=== PATIENT | male | born 1940 | race Caucasian/White ===

== ENCOUNTER 2019-03-26 13:13 | Outpatient (CLI) | payer MEDICARE, OTHER, SELFPAY ==
--- NOTE | 2019-03-26 13:17 | ECG_ITS ---
Measurements Intervals [place] Rate: 66 P: 54 NC: 176 QRS: 66 QRSD: 101 T: 38 QT: 376 QTc: 396 Interpretive Statements SINUS RHYTHM BORDERLINE R WAVE PROGRESSION, ANTERIOR LEADS BASELINE ARTIFACT- I, II, III, AVR, AVL, AVF ABNORMAL ECG Electronically Signed On 03-26-2019 15:44:14 IT [employer] by Dimas Gooden D.O.
[2019-03-26 13:53] LABS: Blood Urea Nitrogen 18 mg/dL (9-20); Calcium 9.2 mg/dL (8.4-10.2); Carbon Dioxide 35 mmol/L (22-30); Chloride 98 mmol/L (98-107); Estimated Glomerular Filt Rate 54; Glucose 114 mg/dL (75-110); Potassium 3.6 mmol/L (3.4-5.0); Sodium 142 mmol/L (137-145)
== END 2019-03-26 13:14 | disposition home or self-care (01) ==
LOC: ANHSURGERY 13:17
PROVIDERS: Anesthesiology; PCP Internal Medicine; Visit Provider Surgery
DX: R94.31 Abnormal electrocardiogram [ECG] [EKG] (principal); I10 Essential (primary) hypertension
CPT/HCPCS: 36415; 80048; 93005

== ENCOUNTER 2019-11-24 00:37 | Outpatient (CLI) | payer MEDICARE, OTHER, SELFPAY ==
[2019-11-24 17:41] LABS: SARS-CoV-2 RNA PCR Negative
== END 2019-11-24 00:38 | disposition home or self-care (01) ==
LOC: ANHCOVIDDT 00:38
PROVIDERS: PCP Internal Medicine; Visit Provider Surgery
DX: Z01.812 Encounter for preprocedural laboratory examination (principal); Z20.828 Contact with and (suspected) exposure to other viral communicable diseases
CPT/HCPCS: 87635; C9803; U0003

== ENCOUNTER 2019-11-24 07:56 | Outpatient (CLI) | payer MEDICARE, OTHER, SELFPAY ==
[2019-11-24 08:49] LABS: Anion Gap 4 mmol/L (8-16); Blood Urea Nitrogen 23 mg/dL (9-20); Calcium 9.6 mg/dL (8.4-10.2); Carbon Dioxide 35 mmol/L (22-30); Chloride 103 mmol/L (98-107); Estimated Glomerular Filt Rate > 60; Glucose 104 mg/dL (75-110); Potassium 4.2 mmol/L (3.4-5.0); Sodium 142 mmol/L (137-145)
== END 2019-11-24 07:57 | disposition home or self-care (01) ==
PROVIDERS: Anesthesiology; PCP Internal Medicine; Visit Provider Surgery
DX: Z79.899 Other long term (current) drug therapy (principal)
CPT/HCPCS: 36415; 80048; 87635; C9803; U0003

== ENCOUNTER 2019-11-26 02:22 | Day surgery (SDC) | payer MEDICARE, OTHER, SELFPAY ==
[2019-11-19 15:17] VITALS: BMI 23.8
[2019-11-26] VITALS (8 sets, daily range): BP systolic 141–153; BP diastolic 79–102; PULSE 70–83; RESP 14–20; TEMP 36.1–36.9; O2SAT 93–100
--- NOTE | 2019-11-26 09:15 | WPDANESEPPF ---
Anes - Initial Pre Proc Eval Procedure: Operation Date: 11/26/19 15:30 Proposed Procedures p Ventral Periumbilical Hernia Repair With Mesh - Buddy Reardon DO <Micah Mike MD - Last Filed: 11/27/19 12:49> Date/Time: 11/26/19 09:15 <Micah Mike MD - Last Filed: 11/27/19 12:49> Surgeon: Buddy Reardon DO <Micah Mike MD - Last Filed: 11/27/19 12:49> Pre Op Diagnosis: Ventral Periumbilical Hernia <Micah Mike MD - Last Filed: 11/27/19 12:49> Patient Data Age: 79 Gender: M Height: 1.83 m Weight: 79.5 kg <Micah Mike MD - Last Filed: 11/27/19 12:49> Allergies Allergy/AdvReac Type Severity Reaction Status Date / Time morphine AdvReac Severe Vomiting Verified 11/26/19 14:30 <Micah Mike MD - Last Filed: 11/27/19 12:49> Home Medications Medication Instructions Recorded Confirmed Type doxycycline hyclate 100 mg tablet 100 mg PO DAILY 03/11/19 11/26/19 History furosemide 20 mg tablet 20 mg PO QAM 03/11/19 11/26/19 History pramipexole 0.5 mg tablet 0.5 mg PO BID 03/11/19 11/26/19 History Calcium 600 + D(3) 1 cap PO DAILY 03/24/19 11/26/19 History Glucosamine Complex-MSM 1 cap PO DAILY 03/24/19 11/26/19 History ascorbic acid (vitamin C) [Vitamin 500 mg PO DAILY 03/24/19 11/26/19 History C] cholecalciferol (vitamin D3) 1 unit PO DAILY 03/24/19 11/26/19 History levothyroxine 50 mcg PO DAILY 03/24/19 11/26/19 History magnesium 400 mg PO DAILY 03/24/19 11/26/19 History niacin 500 mg PO DAILY 03/24/19 11/26/19 History potassium gluconate 595 mg PO DAILY 03/24/19 11/26/19 History irbesartan-hydrochlorothiazide 1 tablet PO DAILY 11/19/19 11/26/19 History metoprolol succinate 50 mg PO DAILY 11/19/19 11/26/19 History spironolactone 25 mg PO DAILY 11/19/19 11/26/19 History hydrocodone-acetaminophen [[place]] 1 tablet PO Q4H PRN #20 tablet 11/26/19 Rx <Micah Mike MD - Last Filed: 11/27/19 12:49> Patient hx anesthesia problems: none <Dawit Turner MD - Last Filed: 11/26/19 14:05> Family hx anesthesia problems: none <Dawit Turner MD - Last Filed: 11/26/19 14:05> [facility] Past Medical History Medical History: Medical History Hyperlipidemia Hypertension Hypothyroidism JORDAN (obstructive sleep apnea) <Micah Mike MD - Last Filed: 11/27/19 12:49> Surgical History Surgical History: Surgical History History of hip surgery right 2019 History of knee surgery bilateral 2018 History of rotator cuff surgery right 10 yrs ago <Micah Mike MD - Last Filed: 11/27/19 12:49> Family History Family History: Family History Sibling Lung cancer Father Emphysema of lung Mother Colon cancer <Micah Mike MD - Last Filed: 11/27/19 12:49> Social History Social History: Social History Smoking status: Never smoker Second hand tobacco smoke exposure: No Alcohol intake: never Substance use: never Living arrangements: with family Spiritual care concerns: No <Micah Mike MD - Last Filed: 11/27/19 12:49> Anes - Eval Final PreProcedure Day of Procedure 11/26/19 09:15 <Micah Mike MD - Last Filed: 11/27/19 12:49> Patient weight: normal <Micah Mike MD - Last Filed: 11/27/19 12:49> normal <Dawit Turner MD - Last Filed: 11/26/19 14:05> Heart: regular rate and rhythm <Micah Mike MD - Last Filed: 11/27/19 12:49> regular rate and rhythm <Dawit Turner MD - Last Filed: 11/26/19 14:05> Lungs: clear to auscultation and normal air movement <Micah Mike MD - Last Filed: 11/27/19 12:49> clear to auscultation <Dawit Turner MD - Last Filed: 11/26/19 14:05> Airway: Mallampati scale
--- NOTE | 2019-11-26 13:51 | PM.IMHP ---
H&P: HPI History of Present Illness Date/Time: 11/26/19 13:51 Chief complaint: Ventral Periumbilical Hernia Narrative: Rolly Gray is a 79 year old male who presents with a bulge near his umbilicus that is causing intermittent pain. This has gotten large over the past couple years. Review of Systems Review of Systems: All systems reviewed & are unremarkable except as noted in HPI and below Constitutional: Constitutional: Denies chills, Denies fever(s), Denies headache(s) and Denies weight loss Eyes: Eyes: Denies change in vision ENT: Denies dizziness, Denies headache(s), Denies neck mass and Denies throat swelling Cardiovascular: Cardiovascular: Denies chest pain, Denies lightheadedness and Denies dyspnea Respiratory: Respiratory: Denies cough, Denies dyspnea and Denies wheezing Gastrointestinal: Gastrointestinal: Denies abdominal pain, Denies change in bowel habits, Denies nausea and Denies vomiting Genitourinary: Genitourinary: Denies hematuria and Denies dysuria Musculoskeletal: Musculoskeletal: Reports as per HPI Integumentary/Breasts: Skin/Breast: Reports as per HPI Neurologic: Denies dizziness and Denies headache(s) Allergic/Immunologic: Allergic/Immunologic: Denies throat swelling and Denies wheezing PMFSH Past Medical History Medical History Hyperlipidemia Hypertension Hypothyroidism JORDAN (obstructive sleep apnea) Surgical History Surgical History History of hip surgery right 2019 History of knee surgery bilateral 2018 History of rotator cuff surgery right 10 yrs ago Family History Family History Sibling Lung cancer Father Emphysema of lung Mother Colon cancer Social History Social History Smoking status: Never smoker Second hand tobacco smoke exposure: No Alcohol intake: never Substance use: never Living arrangements: with family Spiritual care concerns: No Meds Home Medications and Allergies Home Medications Medication Instructions Recorded Confirmed Type doxycycline hyclate 100 mg tablet 100 mg PO DAILY 03/11/19 11/19/19 History furosemide 20 mg tablet 20 mg PO QAM 03/11/19 11/19/19 History pramipexole 0.5 mg tablet 0.5 mg PO BID 03/11/19 11/19/19 History ascorbic acid (vitamin C) [Vitamin 500 mg PO DAILY 03/24/19 11/19/19 History C] calcium carbonate-vitamin D3 1 cap PO DAILY 03/24/19 11/19/19 History [Calcium 600 + D(3)] cholecalciferol (vitamin D3) 1 unit PO DAILY 03/24/19 11/19/19 History ukrefctatiq-ckb-lvtxbqqlc-vitC 1 cap PO DAILY 03/24/19 11/19/19 History [Glucosamine Complex-MSM] levothyroxine 50 mcg PO DAILY 03/24/19 11/19/19 History magnesium 400 mg PO DAILY 03/24/19 11/19/19 History niacin 500 mg PO DAILY 03/24/19 11/19/19 History potassium gluconate 595 mg PO DAILY 03/24/19 11/19/19 History irbesartan-hydrochlorothiazide 1 tablet PO DAILY 11/19/19 11/19/19 History metoprolol succinate 50 mg PO DAILY 11/19/19 11/19/19 History spironolactone 25 mg PO DAILY 11/19/19 11/19/19 History Allergies Allergy/AdvReac Type Severity Reaction Status Date / Time morphine AdvReac Severe Vomiting Verified 11/25/19 13:49 Exam Const: General: no acute distress and alert Orientation/consciousness: patient oriented x3 HENMT: Head: normocephalic and atraumatic Ears: hearing grossly normal bilaterally General nose exam: Normal nares present Mouth: Yes Normal oral and palatal mucosa present Eyes: Periorbital: periorbital findings normal Sclera: sclerae normal EOM: EOMs intact bilaterally Neck: Neck: normal visual inspection, no lymphadenopathy and trachea midline Chest: Chest palpation & inspection: normal inspection of the chest Resp: Effort & Inspection: normal respiratory effort Auscultation: clear to auscultati
--- NOTE | 2019-11-26 13:53 | WPDHPUPDATE1 ---
History and Physical Update Update Date/Time: 11/26/19 13:53 History and Physical has been reviewed, including an updated exam of the patient. There are NO changes in the patient's condition. Risks, benefits, and alternatives have been discussed and questions answered. Patient agrees to proceed with procedure.
[2019-11-26] MEDS: LACTATED RINGERS 1,000 ML 30 ML IV CONT ×2 (14:00→15:56)
[2019-11-26] MEDS: KETOROLAC 15 MG/ML VIAL (*BKC) IV PUSH (14:23)
[2019-11-26] MEDS: ACETAMINOPHEN 500 MG TABLET 1000 MG PO (14:23)
[2019-11-26] MEDS: ceFAZolin 2 GM/D5W 50 ML 2 GM/50 ML BAG IVPB (14:30)
[2019-11-26] MEDS: BUPIVACAINE/EPINEPHRINE 0.5% 10 ML VIAL 30 ML INFILTRATE (14:59)
--- NOTE | 2019-11-26 15:40 | PM.PROC ---
Procedure Note - Detailed Date of procedure: 11/26/19 Pre-op diagnosis: Ventral Periumbilical Hernia Post-op diagnosis: same Procedure performed: Ventral hernia repair with Parietex ventral patch Description of procedure: Procedure as well as risks, benefits, and alternatives were discussed with the patient. Written consent was obtained and placed in chart prior to procedure. Patient was brought back to surgical suite. He was placed supine on operating table. He was then intubated by Anesthesia Department. His abdomen was prepped and draped in sterile fashion using chlorhexidine prep. 0.5% bupivacaine with epinephrine was infiltrated locally around the operative area. A 4 cm curvilinear incision was made just inferior to the umbilicus using a 15 blade scalpel. Electrocautery was used for hemostasis and for dissection down through the subcutaneous fat. Hernia sac was encountered and this was carefully freed up from surrounding subcutaneous fat using electrocautery. The hernia sac was freed up all the way down to the level of the fascia, and then it was transected using electrocautery. The hernia sac was excised and sent to the lab for pathology. The umbilical stalk was then lifted off of the fascia with electrocautery. The hernia defect was then measured. This was measuring approximately 12 mm. The decision was made to use a 6.6 cm Parietex ventral patch. The peritoneum was cleared under the fascia circumferentially around the hernia using blunt dissection and electrocautery. Once a wide enough pocket was created for the mesh, the mesh was then placed within this preperitoneal pocket and laid out flat centered on the hernia defect. The mesh appeared to be sitting in proper position. The mesh was then secured at the 4 corners using 0 Ethibond U-stitch trans fascial sutures. Once all 4 sutures were placed, the mesh was lifted up against the abdominal wall and appeared to be properly centered on the hernia defect. The fascia of the hernia defect was then reapproximated over the mesh using 0 Ethibond [id number] sutures. The 4 transfascial sutures were then tied down in place. The repair was inspected and appeared secure. 0.5% bupivacaine with epinephrine was infiltrated around the fascia and subcutaneous space. The umbilical stalk was then reapproximated to the fascia using a 3 0 Vicryl simple interrupted suture. The deep dermis was reapproximated using 3 0 Vicryl simple interrupted sutures, and then the skin was approximated using 4 Monocryl running subcuticular suture. Exofin glue was then applied on top. The patient was then awakened from anesthesia, extubated, and transferred to recovery. Implants: 6.6 cm Parietex Ventral Patch Anesthesia: GLMA and local (0.5% bupivacaine with epinephrine) Surgeon: Buddy Reardon DO Estimated blood loss (mL): 5 Pathology: yes (Hernia sac) Complications: No immediate complications Condition: stable Disposition: same day Findings: This is a 79-year-old man who presented with complaints of a painful bulge near his umbilicus. He had noticed this over the past couple years with activity, and he has noticed that it has gotten larger over time. He was found have a reducible ventral hernia on physical exam. This was causing protrusion of the periumbilical region. Discussions were made with the patient about treatment options and decision was made to proceed with ventral hernia repair with mesh. Ventral hernia repair was performed. The patient was found to have a 12 mm defect just inferior to the umbilicus. The umbilical skin was protruding with the hernia sac. The hernia sac was carefully dissected free and excised and sent to the lab for pathology. I then created preperitoneal pocket for the mesh to be placed. A 6.6 cm Parietex ventral patch was placed within the preperitoneal pocket that was created. The mesh was secured using 0 Ethibond U-stitch trans fascial sutures, and the fascia was then closed over
--- NOTE | 2019-11-26 17:05 | SUR.PHASEII ---
dr ortiz notified of issue w/pt prescription. new rx called to [facility] r/t unavailibility of medications.
== END 2019-11-26 17:40 | disposition home or self-care (01) ==
PROVIDERS: PCP Internal Medicine; Visit Provider Surgery
PROC: (CPT 49560; principal; 2019-11-26 15:30)
DX: K43.9 Ventral hernia without obstruction or gangrene (principal); I10 Essential (primary) hypertension; E78.5 Hyperlipidemia, unspecified; E03.9 Hypothyroidism, unspecified; G47.33 Obstructive sleep apnea (adult) (pediatric)
CPT/HCPCS: 49560; 49568; 88302; A9270; C1781; J0330; J0690; J1100; J1885; J2405; J2704; J3010; J7120

== ENCOUNTER 2020-10-01 14:14 | Outpatient (CLI) | payer MEDICARE, OTHER, SELFPAY ==
--- NOTE | ~2020-10-01 | XR_ITS ---
XR lumbar spine 2-3V DATE: 10/01/2020 14:49 INDICATION: Left flank pain TECHNIQUE: AP, lateral, coned lateral lumbosacral views COMPARISON: None FINDINGS: There is mild dextroscoliosis. There is osteopenia. There is moderate degenerative disc disease at L4-5 and moderately severe degenerative disc disease at the remaining lumbar and lumbosacral views. No fracture or bone destruction. No spondylolisthesis. The sacroiliac joints are unremarkable. Status post right total hip arthroplasty. IMPRESSION: Multilevel degenerative disc disease Status post right total hip arthroplasty Reviewed, dictated and finalized at location A.
[2020-10-01 14:32] LABS: Add Urine Microscopic? NO; Appearance Urine Clear (Clear); Basophils Absolute Auto 0.02 K/mm3 (0.00-0.10); Basophils Percent Auto 0.4 % (0.0-1.0); Bilirubin Urine Negative (Negative); Blood Urine Negative (Negative); Color Urine Light Yellow (Yellow); Eosinophils Absolute Auto 0.03 K/mm3 (0.02-0.50); Eosinophils Percent Auto 0.6 % (1.0-6.0); Glucose Urine UA Negative (Negative); Hematocrit 40.1 % (37.0-46.0); Hemoglobin 13.6 g/dL (12.4-15.3); Immature Granulocyte Absolute 0.01 K/mm3 (0.00-0.00); Immature Granulocyte Percent A 0.2 % (0.0-0.0); Ketones Urine Negative (Negative); Leukocyte Esterase Ur Negative (Negative); Lymphocytes Absolute Auto 1.68 K/mm3 (1.10-4.50); Lymphocytes Percent Auto 32.2 % (18.0-42.0); Mean Corpuscular HGB Conc 33.9 g/dL (32.0-36.0); Mean Corpuscular Hemoglobin 32.5 pg (27.0-31.0); Mean Corpuscular Volume 95.7 fL (78.0-102.0); Mean Platelet Volume 9.9 fl (8.7-11.0); Monocytes Absolute Auto 0.43 K/mm3 (0.10-0.90); Monocytes Percent Auto 8.3 % (2.0-11.0); Neutrophils Percent Auto 58.3 % (50.0-70.0); Nitrate Urine Negative (Negative); Platelet Count Result 156 K/mm3 (150-420); Protein Urine Negative (Negative); Red Blood Count 4.19 M/mm3 (4.70-6.10); Red Cell Distribution Width 12.1 % (11.6-14.4); Specific Grav Ur 1.025 (1.010-1.020); Urobilinogen Urine 0.2 mg/dL (0.2-1.0); White Blood Count 5.2 K/mm3 (4.8-10.8); pH Urine 5.5 (5.0-8.0)
[2020-10-01 14:50] LABS: Alanine Aminotransferase 25 U/L (16-63); Albumin Level 4.1 g/dL (3.4-5.0); Alkaline Phosphatase 63 U/L (46-116); Anion Gap 7 mmol/L (8-16); Aspartate Amino Transferase 21 U/L (15-37); Bilirubin,Total 0.8 mg/dL (0.00-1.00); Blood Urea Nitrogen 20 mg/dL (7-18); Calcium 8.8 mg/dL (8.5-10.1); Carbon Dioxide 31 mmol/L (21-32); Chloride 106 mmol/L (98-108); Creatine Kinase 80 U/L (39-308); Estimated Glomerular Filt Rate 60; Glucose 100 mg/dL (70-99); Osmolality Calculated 300 mOsm/kg (285-295); Potassium 3.6 mmol/L (3.5-5.1); Sodium 144 mmol/L (136-145); Total Protein 7.1 g/dL (6.4-8.2)
== END 2020-10-01 14:15 | disposition home or self-care (01) ==
LOC: CHSLAB 14:16
PROVIDERS: PCP Internal Medicine; Visit Provider Internal Medicine
DX: R10.9 Unspecified abdominal pain (principal)
CPT/HCPCS: 36415; 72100; 80053; 81003; 82550; 83735; 85025

== ENCOUNTER 2021-01-13 12:44 | Outpatient (CLI) | payer MEDICARE, OTHER, SELFPAY ==
--- NOTE | ~2021-01-13 | XR_ITS ---
EXAMINATION: XR chest 2V EXAM DATE: 01/13/2021 13:19 INDICATION: hx HTN, preop chest, no chest complaints. TECHNIQUE: Frontal and lateral projections of the chest obtained and reviewed. Comparison is made to prior examination from 12/15/2019. FINDINGS: The lungs are hyperinflated which can be seen with chronic obstructive pulmonary disease (a clinical diagnosis of functional impairment), but is not diagnostic of it. The lungs are clear. The re are no pleural effusions. The cardiomediastinal silhouette is within normal limits. There is no pneumothorax suspected. The bones and soft tissues are unremarkable. IMPRESSION: No acute cardiopulmonary findings. Reviewed, dictated and finalized at location A. YCOMB DECAPPER
== END 2021-01-13 12:45 | disposition home or self-care (01) ==
LOC: CHSIMG 12:49
PROVIDERS: PCP Internal Medicine; Visit Provider Internal Medicine
DX: Z01.810 Encounter for preprocedural cardiovascular examination (principal); I10 Essential (primary) hypertension; R60.9 Edema, unspecified
CPT/HCPCS: 71046

== ENCOUNTER 2021-02-15 07:50 | Outpatient (CLI) | payer MEDICARE, OTHER, SELFPAY ==
--- NOTE | ~2021-02-15 | XR_ITS ---
EXAMINATION: XR barium swallow DATE: 02/15/2021 08:36 INDICATION: Dysphagia. TECHNIQUE: The patient drank thick barium, gas-producing crystals, and thin barium. Fluoroscopy of th e hypopharynx and esophagus was performed. Fluoroscopy exposure time was 0.4 minutes. The total numbe r of images was 508. The dose-area product was 2.281 Gy-cm^2. COMPARISON: None. FINDINGS: There is no mass or stricture of the esophagus. Esophageal motility is normal. There is no hiatal hernia. There was no gastroesophageal reflux with provocative maneuvers. IMPRESSION: 1. Normal esophagram. Reviewed, dictated and finalized at location B. N MAN IMPRESSION: 1. Normal esophagram.
== END 2021-02-15 07:51 | disposition home or self-care (01) ==
LOC: CHSIMG 07:52
PROVIDERS: PCP Internal Medicine; Visit Provider Internal Medicine
DX: R13.10 Dysphagia, unspecified (principal)
CPT/HCPCS: 74220

== ENCOUNTER 2021-03-08 14:58 | Outpatient (CLI) | payer MEDICARE, SELFPAY ==
[2021-03-08 16:18] LABS: SARS-CoV-2 RNA PCR Positive (Negative)
== END 2021-03-08 14:59 | disposition home or self-care (01) ==
LOC: CHSLAB 15:02
PROVIDERS: PCP Internal Medicine; Visit Provider Internal Medicine
DX: U07.1 COVID-19 (principal); R05.9 Cough, unspecified
CPT/HCPCS: C9803; U0003; U0005

== ENCOUNTER 2022-02-13 14:13 | Outpatient (CLI) | payer MEDICARE, OTHER, SELFPAY | END 2022-02-13 14:14 | disposition home or self-care (01) | LOC: CHSIMG 14:15 | PROVIDERS: PCP Internal Medicine; Visit Provider Specialist | DX: R93.1 Abnormal findings on diagnostic imaging of heart and coronary circulation (principal); I10 Essential (primary) hypertension; G47.33 Obstructive sleep apnea (adult) (pediatric) | CPT/HCPCS: 93306 ==

== ENCOUNTER 2022-10-27 16:05 | Outpatient (CLI) | payer MEDICARE, OTHER, SELFPAY ==
--- NOTE | ~2022-10-27 | XR_ITS ---
XR lumbar spine 2-3V DATE: 10/27/2022 16:22 INDICATION: Sciatica, right leg pain. No known injury. TECHNIQUE: AP, lateral, coned lateral lumbosacral views COMPARISON: 10/01/2020 lumbar spine FINDINGS: Mild lumbar dextroscoliosis. The lumbar vertebrae are normally aligned, without fracture or bone destruction or spondylolisthesis. Included lower thoracic and lumbar pedicles are intact. There is degenerative disc disease throughout the lumbar spine, moderately severe L1-2, moderate at L 2-3, severe at L3-4, moderate at L4-5, moderately severe at L5-S1. The sacral iliac joints are normal. Status post bilateral total hip arthroplasty. IMPRESSION: Mild lumbar dextro scoliosis Moderate to severe degenerative disc disease throughout the lumbar spine Reviewed, dictated and finalized at location A.
--- NOTE | ~2022-10-27 | XR_ITS ---
XR hip RT min 2V DATE: 10/27/2022 16:22 INDICATION: Right leg pain, sciatica. No known injury. TECHNIQUE: AP and lateral views of right hip COMPARISON: None FINDINGS: Status post right total hip arthroplasty. No fracture or dislocation, periosteal reaction or bone destruction is detected. Normal alignment at the pubic symphysis and right sacral iliac joint. IMPRESSION: Status post right total hip arthroplasty Reviewed, dictated and finalized at location A.
== END 2022-10-27 16:06 | disposition home or self-care (01) ==
LOC: CHSIMG 16:08
PROVIDERS: PCP Internal Medicine; Visit Provider Internal Medicine
DX: M79.604 Pain in right leg (principal); M41.86 Other forms of scoliosis, lumbar region; M51.36 Other intervertebral disc degeneration, lumbar region; Z96.641 Presence of right artificial hip joint
CPT/HCPCS: 72100; 73502

== ENCOUNTER 2022-11-11 07:22 | Outpatient (CLI) | payer MEDICARE, OTHER, SELFPAY ==
--- NOTE | ~2022-11-11 | MR_ITS ---
EXAMINATION: MR lumbar spine wo con DATE: 11/11/2022 11:13 INDICATION: Low back pain radiating to the left leg. TECHNIQUE: Magnetic resonance imaging (MRI) of the lumbar spine was performed without intravenous con trast. Sequences included sagittal T2-weighted FSE, sagittal T2-weighted FS FSE, sagittal T1-weighted FSE, and axial T2-weighted FSE. COMPARISON: Lumbar spine radiographs 10/27/2022 FINDINGS: There are cysts in the kidneys measuring up to 7.1 cm on the right. There is 6 degrees dext rocurvature of lumbar spine. There are Schmorl's nodes at multiple levels. There is mildly decreased disc height at L1-L2 and L2-L3 and severely decreased disc height from L3-L4 through L5-S1 with endpl ate remodeling. The distal spinal cord signal intensity is normal. The conus medullaris is at T12-L1. The following disc levels are specifically discussed: L1-L2: The disc is bulging. There is mild bilateral facet joint osteoarthritis. There is mild bilater al neural foraminal stenosis. There is mild central canal stenosis. L2-L3: The disc is bulging and has an annular fissure. There is mild bilateral facet joint osteoarthr itis. There is mild bilateral neural foraminal stenosis. There is mild central canal stenosis. L3-L4: The disc is bulging and has an annular fissure. There is moderate bilateral facet joint osteoa rthritis. There is moderate bilateral neural foraminal stenosis. There is mild central canal stenosis . L4-L5: The disc is bulging with superimposed right central and foraminal zone extrusion. There is mil d bilateral facet joint osteoarthritis. There is moderate right and mild left neural foraminal stenos is. There is moderate central canal stenosis. There is severe stenosis of right lateral recess. L5-S1: The disc is bulging and has an annular fissure. There is severe bilateral facet joint osteoart hritis. There is mild bilateral neural foraminal stenosis. There is mild central canal stenosis. IMPRESSION: 1. Severe lumbar spondylosis. Reviewed, dictated and finalized at location A.
== END 2022-11-11 07:23 | disposition home or self-care (01) ==
LOC: CHSIMG 07:24
PROVIDERS: PCP Internal Medicine; Visit Provider Internal Medicine
DX: M54.17 Radiculopathy, lumbosacral region (principal); M43.06 Spondylolysis, lumbar region
CPT/HCPCS: 72148

== ENCOUNTER 2023-01-12 07:11 | Outpatient (CLI) | payer MEDICARE, SELFPAY ==
[2023-01-12 07:25] LABS: Basophils Absolute Auto 0.01 K/mm3 (0.00-0.10); Basophils Percent Auto 0.3 % (0.0-1.0); Eosinophils Absolute Auto 0.08 K/mm3 (0.02-0.50); Hematocrit 42.2 % (37.0-46.0); Hemoglobin 14.1 g/dL (12.4-15.3); Immature Granulocyte Absolute 0.01 K/mm3 (0.00-0.00); Immature Granulocyte Percent A 0.3 % (0.0-0.0); Lymphocytes Absolute Auto 1.39 K/mm3 (1.10-4.50); Lymphocytes Percent Auto 34.8 % (18.0-42.0); Mean Corpuscular HGB Conc 33.4 g/dL (32.0-36.0); Mean Corpuscular Hemoglobin 31.9 pg (27.0-31.0); Mean Corpuscular Volume 95.5 fL (78.0-102.0); Mean Platelet Volume 9.5 fl (8.7-11.0); Monocytes Absolute Auto 0.35 K/mm3 (0.10-0.90); Monocytes Percent Auto 8.8 % (2.0-11.0); Neutrophils Absolute Auto 2.2 K/mm3 (1.7-7.2); Neutrophils Percent Auto 53.8 % (50.0-70.0); Platelet Count Result 132 K/mm3 (150-420); Red Blood Count 4.42 M/mm3 (4.70-6.10); Red Cell Distribution Width 12.1 % (11.6-14.4)
[2023-01-12 07:45] LABS: Anion Gap 1 mmol/L (8-16); Blood Urea Nitrogen 18 mg/dL (7-18); Calcium 9.1 mg/dL (8.5-10.1); Carbon Dioxide 38 mmol/L (21-32); Chloride 103 mmol/L (98-108); Estimated Glomerular Filt Rate > 60; Glucose 102 mg/dL (70-99); Osmolality Calculated 295 mOsm/kg (285-295); Potassium 4.3 mmol/L (3.5-5.1); Sodium 142 mmol/L (136-145)
== END 2023-01-12 07:12 | disposition home or self-care (01) ==
LOC: CHSLAB 07:15
PROVIDERS: PCP Internal Medicine; Visit Provider Internal Medicine
DX: Z01.818 Encounter for other preprocedural examination (principal)
CPT/HCPCS: 36415; 80048; 85025

== ENCOUNTER 2023-03-01 09:19 | Outpatient (CLI) | payer MEDICARE, SELFPAY ==
[2023-03-01 09:38] LABS: Basophils Absolute Auto 0.02 K/mm3 (0.00-0.10); Basophils Percent Auto 0.4 % (0.0-1.0); Eosinophils Absolute Auto 0.05 K/mm3 (0.02-0.50); Hematocrit 41.6 % (37.0-46.0); Hemoglobin 13.9 g/dL (12.4-15.3); Immature Granulocyte Absolute 0.01 K/mm3 (0.00-0.00); Immature Granulocyte Percent A 0.2 % (0.0-0.0); Lymphocytes Absolute Auto 1.53 K/mm3 (1.10-4.50); Lymphocytes Percent Auto 31.8 % (18.0-42.0); Mean Corpuscular HGB Conc 33.4 g/dL (32.0-36.0); Mean Corpuscular Volume 92.9 fL (78.0-102.0); Mean Platelet Volume 9.7 fl (8.7-11.0); Monocytes Absolute Auto 0.41 K/mm3 (0.10-0.90); Monocytes Percent Auto 8.5 % (2.0-11.0); Neutrophils Absolute Auto 2.8 K/mm3 (1.7-7.2); Neutrophils Percent Auto 58.1 % (50.0-70.0); Platelet Count Result 144 K/mm3 (150-420); Red Blood Count 4.48 M/mm3 (4.70-6.10); Red Cell Distribution Width 11.9 % (11.6-14.4); White Blood Count 4.8 K/mm3 (4.8-10.8)
[2023-03-01 10:22] LABS: Alanine Aminotransferase 26 U/L (16-63); Albumin Level 3.7 g/dL (3.4-5.0); Alkaline Phosphatase 64 U/L (46-116); Anion Gap 7 mmol/L (8-16); Aspartate Amino Transferase 22 U/L (15-37); Blood Urea Nitrogen 23 mg/dL (7-18); Calcium 9.4 mg/dL (8.5-10.1); Carbon Dioxide 34 mmol/L (21-32); Chloride 104 mmol/L (98-108); Estimated Glomerular Filt Rate > 60; Glucose 106 mg/dL (70-99); Osmolality Calculated 303 mOsm/kg (285-295); Potassium 4.2 mmol/L (3.5-5.1); Sodium 145 mmol/L (136-145); Total Protein 6.3 g/dL (6.4-8.2)
== END 2023-03-01 09:20 | disposition home or self-care (01) ==
LOC: CHSLAB 09:22
PROVIDERS: PCP Internal Medicine; Visit Provider Internal Medicine
DX: D72.819 Decreased white blood cell count, unspecified (principal); D69.6 Thrombocytopenia, unspecified
CPT/HCPCS: 36415; 80053; 85025

== ENCOUNTER 2023-05-03 10:50 | Outpatient (CLI) | payer MEDICARE, OTHER, SELFPAY ==
--- NOTE | ~2023-05-03 | XR_ITS ---
XR heel LT min 2V 05/03/2023 11:11 Indication: Left heel pain Procedure: 2 views left heel/os calcis Comparison: No prior studies for comparison. Findings: No fracture, subluxation or dislocation. No soft tissue abnormality. No foreign bodies. Impression: 1: No acute bone or joint abnormality. Reviewed, dictated and finalized at location L. Impression: 1: No acute bone or joint abnormality.
== END 2023-05-03 10:51 | disposition home or self-care (01) ==
PROVIDERS: PCP Internal Medicine; Visit Provider Internal Medicine
DX: M79.672 Pain in left foot (principal)
CPT/HCPCS: 73650

== ENCOUNTER 2024-06-09 16:28 | Outpatient (CLI) | payer MEDICARE, OTHER, SELFPAY ==
--- NOTE | ~2024-06-09 | XR_ITS ---
CHEST RADIOGRAPH, PA AND LATERAL CLINICAL HISTORY: neck and left shoulder pain, chest pain . COMPARISON: 01/13/2021 TECHNIQUE: PA and lateral views of the chest. FINDINGS The cardiomediastinal silhouette is unremarkable. The lungs are clear. Visualized osseous structures and soft tissues are unremarkable. IMPRESSION: No focal infiltrate or effusion. Reviewed, dictated and finalized at location A.
--- NOTE | ~2024-06-09 | XR_ITS ---
Cervical Spine: AP, lateral, open-mouth views Clinical History: Pain Findings: The normal lordotic curve is maintained. No fracture or subluxation seen. There is advanced degenerative disc narrowing at C5-C6 and C6-C7. There is moderate to advanced facet arthropathy thro ughout the cervical spine. Pre-vertebral soft tissues are unremarkable. Impression: Moderate to advanced degenerative spondylosis, especially from C5 through C7. Reviewed, dictated and finalized at location . Impression: Moderate to advanced degenerative spondylosis, especially from C5 through C7.
--- NOTE | ~2024-06-09 | XR_ITS ---
HISTORY: neck and left shoulder pain, chest pain COMPARISON: None TECHNIQUE: 3 views of the left shoulder were performed FINDINGS: No acute fracture. The glenohumeral joint space is maintained. Significant degenerative disease is identified within the left acromioclavicular joint space with ost eophyte formation and joint space narrowing. The visualized portion of the adjacent left lung is clear. The humeral head is well seated within the glenoid fossa. IMPRESSION: Degenerative disease within the acromioclavicular joint space. No acute fracture or anterior dislocation. Reviewed, dictated and finalized at location A.
--- OUTSIDE RECORDS SUMMARY | 2024-06-09 16:51 | XMS_ITS | Referral Summary ---
Author Organization [facility] Address [address] [place] [address] Care Team Providers Care Group Home Paraprofessional Name Role Phone Vincent Calderon MD Primary Care Provider [phone] Andrew Zazueta MD Unavailable [phone] Dell BECKER MD, David Gtz Unavailable Encounters Date Type Department Care Team Description 06/02/2024 10:15 AM CDT Office Visit [place] [facility] at [address] [place] [id number] Brittani Calvillo NP Primary hypertension (Primary Dx); Mixed hyperlipidemia; SOB (shortness of breath) 05/08/2024 7:51 AM CDT - 05/08/2024 11:59 PM CDT Hospital Encounter [address] [address] Discharge Disposition: Discharge to home or self care 05/08/2024 7:51 AM CDT - 05/08/2024 11:59 PM CDT Hospital Encounter [facility] [address] [place] [id number] SOB (shortness of breath) Discharge Disposition: Discharge to home or self care 05/08/2024 7:50 AM CDT - 05/08/2024 11:59 PM CDT Hospital Encounter [address] [address] Discharge Disposition: Discharge to home or self care 05/08/2024 7:45 AM CDT - 05/08/2024 11:59 PM CDT Hospital Encounter [facility] [address] [place] [address] SOB (shortness of breath) Discharge Disposition: Discharge to home or self care 05/08/2024 7:51 AM CDT - 05/08/2024 11:59 PM CDT Hospital Encounter [facility] [address] [place] [address] Primary hypertension Discharge Disposition: Discharge to home or self care 04/07/2024 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 Visit [place] [facility] at [facility] [address] [facility] [address] [place] [id number] Taqueria Astorga MD Precordial pain (Primary Dx); Pericardial effusion; Mixed hyperlipidemia; Primary hypertension; SOB (shortness of breath) from Last 3 Months Allergies Active Allergy Reactions Criticality Noted Date Comments Azithromycin Other (See comments) Low 06/05/2018 Altered taste Meloxicam Swelling Medium 02/12/2017 Fluid retention and high blood pressure Morphine Nausea only Low 12/08/2016 Nausea and vomiting for 5 hours after surgery Medications levothyroxine (SYNTHROID) 50 mcg tablet Take 1 tablet (50 mcg total) by mouth lab asst before breakfast 0 06/08/19 19 Active cholecalcifero l (VITAMIN D-3) 25 mcg (1,000 unit) tablet Take 1 tablet (1,000 Units total) by mouth daily Active doxycycline hyclate 100 mg capsule Take 1 tablet/capsul e (100 mg total) by mouth daily 07/20/19 20 Active glucosam-michael- cee5-X-cuyu-renita sw 750 mg-644 mg- 30 mg-1 mg tablet Take 1 tablet by mouth daily Dose is 1500mg/1100mg Active multivit-min/F A/lycopen/lute in (CENTRUM SILVER MEN ORAL) Take 1 tablet by mouth daily Active pramipexole (MIRAPEX) 0.5 mg tablet TAKE 1 TABLET EVERY MORNINGAND 2 TABLETS AT BEDTIME 01/07/20 24 Active atorvastatin (LIPITOR) 80 mg tablet Take 1 tablet (80 mg total) by mouth daily 90 tablet 3 06/03/19 25 026 Active furosemide (LASIX) 20 mg tablet Take 1 tablet (20 mg total) by mouth daily 90 tablet 3 06/03/19 25 Active irbesartan-hyd rochlorothiazi de (AVALIDE) 150-12.5 mg per tablet Take 1 tablet by mouth daily 90 tablet 3 06/03/19 25 Active spironolactone (ALDACTONE) 25 mg tablet Take 1 tablet (25 mg total) by mouth daily 90 tablet 3 06/03/19 25 Active metoprolol XL (TOPROL-XL) 50 mg extended release tablet Take 1 tablet (50 mg total) by mouth daily 90 tablet 3 06/03/19 25 Active potassium gluconate 595 mg (99 mg) tablet Take 1 tablet (595 mg total) by mouth daily 025 Discontinued magnesium oxide (MAG-OX) 400 mg (241.3 mg elemental magnesium) tablet Take 1 tablet (400 mg total) by mouth daily 025 Discontinued furosemide (LASIX) 20 mg tablet Take 1 tablet (20 mg total) by mouth daily 05/27/19 20 025 Discontinued(Re order) irbesartan-hyd rochlorothiazi de (AVALIDE) 150-12.5 mg per tablet Take 1 tablet by mouth daily 07/20/19 20 025 Discontinued(Re order) spironolactone (ALDACTONE) 25 mg tablet Take 1 tablet (25 mg total) by mouth daily 05/27/19 20 025 Discontinued(Re order) ascorbic acid (VITAMIN C) 500 mg tablet,chewabl eIndications:V itamin deficiency prevention Take 1 tablet/chew tab (500 mg total) by mouth daily 30 tablet/chew tab 03/22/19 22 025 Discontinued vit U-E-kpmjpx-zin c-lutein 226-90-0.8-5 mg capsule Take by mouth 025 Discontinued metoprolol XL (TOPROL-XL) 50 mg extended release tablet Take 1 tablet (50 mg total) by mouth daily 01/07/20 24 025 Discontinued(Re order) atorvastatin (LIPITOR) 80 mg tablet Take 1 tablet (80 mg total) by mouth daily 30 tablet 11 04/08/19 25 025 Discontinued(Re order) Active Problems Problem Noted Date Diagnosed Date Precordial pain 04/07/2024 Pericardial effusion 04/07/2024 Mixed hyperlipidemia 04/07/2024 Personal history of colonic polyps 03/12/2023 Family history of colon cancer in mother 024 Encounter for screening colonoscopy 03/12/2023 LV dysfunction 02/13/2022 Aftercare following left hip joint replacement s urgery 04/05/2021 It band syndrome, left 11/07/2018 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 Hypercholesterolemia 06/06/2018 Overview (06/06/2018): High cholesterol; Comments: DWL 04/14/2014 - Assessment & Plan (06/06/2018 7:39 AM CDT): On statin Hypothyroidism 06/06/2018 Assessment & Plan (06/06/2018 7:39 AM CDT): On Synthroid Closed fracture of neck of right femur 9 Assessment & Plan (06/06/2018 7:39 AM CDT): Patient with right femoral neck fracture. Orthopedics consulted. Tentative plan is to take to the OR in a.m.. Patient is medical cleared for the procedure with low risk. Will keep the patient NPO Type and screen Pain control Continue IV fluids Nonweightbearing Fall precaution History of colon polyps 02/19/2018 Overview (02/19/2018): Added automatically from request for surgery [id number] Family hx of colon cancer 02/19/2018 Overview (02/19/2018): Added automatically from request for surgery [id number] Closed fracture of right hip requiring operative repair Resolved Problems Problem Noted Date Diagnosed Date Resolved Date Primary osteoarthritis of left hip 01/26/2021 04/05/2021 Overview (01/26/2021): Added automatically from request for surgery [id number] Social History Tobacco Use Types Packs/Day Years Used Date Smoking Tobacco: Never Smokeless Tobacco: Never Tobacco Cessation:Counseling Given: Not Answered Alcohol Use Standard Drinks/Week Comments Not Currently 0 (1 standard drink = 0.6 oz pur e alcohol) AUDIT-C Answer Date Recorded Q1: How often do you have a drink containing alcohol? Never 09/24/2023 Q2: How many drinks containi ng alcohol do you have on a typical day when you are drinking? Patient does not drink Q3: How often do you have si x or more drinks on one occasion? Never 09/24/2023 PHQ-2 Answer Date Recorded PHQ-2 Total Score (If total score is 3 or more points, staff should administer the PHQ-9) 0 03/21/2021 Personal Safety Answer Date Recorded Have you ever been in or are you currently in a harmful physical or emotional relationship or is someone making you feel afraid or unsafe? 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 Gender Identity Not on file Sexual Orientation Not on file Last Filed Vital Signs Vital Sign Reading Time Taken Comments Blood Pressure 150/79 06/02/2024 10:18 AM CDT Pulse 59 06/02/2024 10:18 AM CDT Temperature 36.4 C (97.6 F) 01/06/2024 7:18 AM WAGON DRIVER SALESPERSON Respiratory Rate 18 06/02/2024 10:18 AM CDT Oxygen Saturation 96% 01/06/2024 11:00 AM WAGON DRIVER SALESPERSON Inhaled Oxygen Concentration - - Weight 83 kg (183 lb) 06/02/2024 10:18 AM CDT Height 182.9 cm (6') 06/02/2024 10:18 AM CDT Body Mass Index 24.82 06/02/2024 10:18 AM CDT Plan of Treatment Not on file Medical Devices Implanted Type Area Tip Out Worker Device Identifier Shelf Expiration Date Model / Serial / Lot Acetabular Shell Sector Implanted:Qty: 1 on 06/06/2018 by Andrew Zazueta MD at [facility] Right: Hip [employer] [id number] 03/07/2028 1217-64914 / / [id number] [employer] 1217-35500 [place] 6.5mm 35mm Acetabular Cancellous Screw Bone Sterile - [id number] Implanted:Qty: 1 on 06/06/2018 by Andrew Zazueta MD at [facility] Right: Hip [employer] 02/05/2028 1217-35-500 / / [id number] [employer] [id number] [place] 58mm 36mm Hip Neutral Liner Acetabular Altrx Sterile Latex Free - [id number] Implanted:Qty: 1 on 06/06/2018 by Andrew Zazueta MD at [facility] Right: Hip [employer] 03/07/2023 [id number] / / [id number] [employer] [id number] Actis Collar Hip 8 Standard Offset Stem Femoral - [id number] Implanted:Qty: 1 on 06/06/2018 by Andrew Zazueta MD at [facility] Right: Hip [employer] 10/06/2027 [id number] / / [id number] [employer] 1365-36-330 Articul/Matt 36mm Cementless Hip +8.5mm 12/14 Taper Head Femoral Latex Free - [id number] Implanted:Qty: 1 on 06/06/2018 by Andrew aZzueta MD at [facility] Right: Hip [employer] 04/05/2023 1365-36-330 / / [id number] [employer] 1365-36-330 Articul/Matt 36mm Cementless Hip +8.5mm 12/14 Taper Head Femoral Latex Free - [id number] Implanted:Qty: 1 on 03/21/2021 by Andrew Zazueta MD at [facility] Left: Hip [employer] 12/05/2025 1365-36-330 / / [id number] [employer] [id number] [place] 58mm Sector Hip Shell Acetabular Gription Sterile Latex Free - [id number] Implanted:Qty: 1 on 03/21/2021 by Andrew Zazueta MD at [facility] Left: Hip [employer] 11/04/2030 [id number] / / [id number] [employer] [id number] [place] 58mm 36mm Hip Neutral Liner Acetabular Altrx Sterile Latex Free - [id number] Implanted:Qty: 1 on 03/21/2021 by Andrew Zazueta MD at [facility] Left: Hip [employer] 01/04/2026 [id number] / / [id number] [employer] 1217-35-500 [place] 6.5mm 35mm Acetabular Cancellous Screw Bone Sterile - [id number] Implanted:Qty: 1 on 03/21/2021 by Andrew Zazueta MD at [facility] Left: Hip [employer] 12/05/2030 1217-35-500 / / [id number] [employer] [id number] Actis Collar Hip 9 High Offset Stem Femoral - [id number] Implanted:Qty: 1 on 03/21/2021 by Andrew Zazueta MD at [facility] Left: Hip [employer] 01/04/2031 [id number] / / [id number] Procedures Procedure Name Priority Date/Time Associated Diagnosis Comments TRANSTHORACIC ECHO (TTE) COMPLETE W DOPPLER/CF WO CONTRAST Routine 05/08/2024 9:48 AM CDT Primary hypertension STRESS TEST FOR DUAL READ Schedule Routine, Read Routine (OP Routine) 05/08/2024 8:55 AM CDT SOB (shortness of breath) NM MPI SPECT (REST AND/OR STRESS) MULTIPLE STUDIES Schedule Routine, Read Routine (OP Routine) 05/08/2024 8:55 AM CDT SOB (shortness of breath) from Last 3 Months Results * TRANSTHORACIC ECHO (TTE) COMPLETE W DOPPLER/CF WO CONTRAST (05/08/2024 9:48 AM CDT) Anatomical Region Laterality Modality Ultrasound 05/08/2024 9:34 AM CDT Narrative 05/08/2024 1:15 PM CDT [address] [place] [address] Echocardiogram Report Patient Name: ROLLY ARROYO A : 1940 Study Date: 05/08/2024 9:34:03 AM Gender: M Tech: AA Location: echo room 1 Ref Provider: TAQUERIA ASTORGA Height(Cm): BSA: Weight(Kg): Quality: Good Order Provider: TAQUERIA ASTORGA PROCEDURES: Echocardiographic Report: Transthoracic echocardiogram with complete 2D, M-Mode, and color Doppler examination. INDICATIONS: Hypertension and I10 Essential (primary) hypertension. MEASUREMENTS: 2D/MM Value Range Doppler Value Range EF Teich 2D 62.8 % [ 52.0 - 72.0 ] AZALIA Vmax 2.29 cm2 EF Mod BP 66 % [ 52 - 72 ] AV Mean PG 5 mmHg LVIDd 2D 4.70 cm [ 4.20 - 5.80 ] AV Peak Bret 1.47 m/s [ 1.00 - 1.70 ] LVIDs 2D 3.10 cm [ 2.50 - 4.00 ] AV VTI 30.13 cm LVPWd 2D 1.54 cm [ 0.60 - 1.00 ] LVOT Diam 2.15 cm IVSd 2D 1.45 cm [ 0.60 - 1.00 ] LVOT Peak Bret 0.93 m/s [ 0.70 - 1.10 ] LA Dimension MM 5.44 cm [ 3.00 - 4.00 ] LVOT VTI 20.56 cm AoR Diam MM 3.96 cm [ 3.10 - 3.70 ] MV E Peak Bret 0.69 m/s [ 0.60 - 1.30 ] ACS MM 2.02 cm [ 1.50 - 2.60 ] MV A Peak Bret 0.76 m/s [ 1.00 - 1.20 ] MV Mean PG 1 mmHg MV PHT 54 msec [ 20 - 100 ] MVA 3.90 MV Decel Time 187 msec [ 104 - 258 ] PV Peak Bret 0.89 m/s [ 0.40 - 0.80 ] TR Peak Bret 2.61 m/s [ 1.00 - 2.80 ] TR Peak PG 27 mmHg RVSP 32.00 mmHg [ 10.00 - 36.00 ] E` 0.06 m/s E/E` 4.10 [ <= 10.00 ] PA Pressure 5.00 mmHg [ 10.00 - 36.00 ] 2D/MM Value Range Doppler Value Range - FINDINGS: Atrial Septum: Normal atrial septum. Left Ventricle: Normal left ventricular systolic function with no focal wall motion abnormalities. Normal left ventricular size. Mild concentric left ventricular hypertrophy. Impaired diastolic relaxation Grade I. Ejection fraction is measured at 66 %. Left Atrium: The left atrium is normal in size. Right Ventricle: Normal right ventricular size. Normal right ventricular systolic function. Right Atrium: The right atrium is normal in size. Aortic Valve: Normal structure of the aortic valve. Mitral Valve: Trivial regurgitation of the mitral valve. Pulmonic Valve: Normal structure of the pulmonic valve. Tricuspid Valve: Mild pulmonary hypertension based on right ventricular systolic pressure. Estimated peak RVSP is 35-40 mmHg. Mild tricuspid regurgitation. Pericardium: Small pericardial effusion. Aorta: Normal aortic root. Sinus of Valsalva is normal. Aortic arch is normal. Descending aorta is normal. IVC: Normal size and normal respiratory collapse consistent with normal right atrial pressure (<5 mmHg). Pulmonary Artery: Normal pulmonary artery size. CONCLUSIONS: Normal left ventricular systolic function with no focal wall motion abnormalities. Normal left ventricular size. Mild concentric left ventricular hypertrophy. Impaired diastolic relaxation Grade I. Ejection fraction is measured at 66 %. Trivial regurgitation of the mitral valve. Mild pulmonary hypertension based on right ventricular systolic pressure. Estimated peak RVSP is 35-40 mmHg. Mild tricuspid regurgitation. Electronically Signed By: Taqueria Astorga MD 05/08/2024 1:15:32 PM CDT Procedure Note Taqueria Astorga MD - 05/08/[address] [place] [address] Echocardiogram Report Patient Name: ROLLY ARROYO A : 1940 Study Date: 05/08/2024 9:34:03 AM Gender: M Tech: AA Location: echo room 1 [facility] Provider: TAQUERIA ASTORGA Height(Cm): BSA: Weight(Kg): Quality: Good Order Provider: TAQUERIA ASTORGA PROCEDURES: Echocardiographic Report: Transthoracic echocardiogram with complete 2D, M-Mode, and color Dopplerexamination. INDICATIONS: Hypertension and I10 Essential (primary) hypertension. MEASUREMENTS: 2D/MM Value Range Doppler ValueRange EF Teich 2D 62.8 % [ 52.0 - 72.0 ] AZALIA Vmax 2.29cm2 EF Mod BP 66 % [ 52 - 72 ] AV Mean PG 5 mmHg LVIDd 2D 4.70 cm [ 4.20 - 5.80 ] AV Peak Bret 1.47 m/s[ 1.00 - 1.70 ] LVIDs 2D 3.10 cm [ 2.50 - 4.00 ] AV VTI 30.13cm LVPWd 2D 1.54 cm [ 0.60 - 1.00 ] LVOT Diam 2.15cm IVSd 2D 1.45 cm [ 0.60 - 1.00 ] LVOT Peak Bret 0.93 m/s[ 0.70 - 1.10 ] LA Dimension MM 5.44 cm [ 3.00 - 4.00 ] LVOT VTI 20.56cm AoR Diam MM 3.96 cm [ 3.10 - 3.70 ] MV E Peak Bret 0.69 m/s[ 0.60 - 1.30 ] ACS MM 2.02 cm [ 1.50 - 2.60 ] MV A Peak Bret 0.76 m/s[ 1.00 - 1.20 ] MV Mean PG 1 mmHg MV PHT 54 msec [ 20 - 100 ] MVA 3.90 MV Decel Time 187 msec [ 104 - 258 ] PV Peak Bret 0.89 m/s [ 0.40 - 0.80 ] TR Peak Bret 2.61 m/s [ 1.00 - 2.80 ] TR Peak PG 27 mmHg RVSP 32.00 mmHg [ 10.00 - 36.00 ] E` 0.06 m/s E/E` 4.10 [ <= 10.00 ] PA Pressure 5.00 mmHg [ 10.00 - 36.00 ] 2D/MM Value Range Doppler ValueRange - FINDINGS: Atrial Septum: Normal atrial septum. Left Ventricle: Normal left ventricular systolic function with no focal wall motionabnormalities. Normal left ventricular size. Mild concentric left ventricular hypertrophy.Impaired diastolic relaxation Grade I. Ejection fraction is measured at 66 %. Left Atrium: The left atrium is normal in size. Right Ventricle: Normal right ventricular size. Normal right ventricular systolicfunction. Right Atrium: The right atrium is normal in size. Aortic Valve: Normal structure of the aortic valve. Mitral Valve: Trivial regurgitation of the mitral valve. Pulmonic Valve: Normal structure of the pulmonic valve. Tricuspid Valve: Mild pulmonary hypertension based on right ventricular systolic pressure.Estimated peak RVSP is 35-40 mmHg. Mild tricuspid regurgitation. Pericardium: Small pericardial effusion. Aorta: Normal aortic root. Sinus of Valsalva is normal. Aortic arch is normal.Descending aorta is normal. IVC: Normal size and normal respiratory collapse consistent with normal rightatrial pressure (<5 mmHg). Pulmonary Artery: Normal pulmonary artery size. CONCLUSIONS: Normal left ventricular systolic function with no focal wall motionabnormalities. Normal left ventricular size. Mild concentric left ventricular hypertrophy.Impaired diastolic relaxation Grade I. Ejection fraction is measured at 66 %. Trivial regurgitation of the mitral valve. Mild pulmonary hypertension based on right ventricular systolic pressure.Estimated peak RVSP is 35-40 mmHg. Mild tricuspid regurgitation. Electronically Signed By: Taqueria Astorga MD 05/08/2024 1:15:32 PM CDT us Taqueria Astorga MD CV ECHO PROCEDURES Final Result * NM MPI SPECT (Rest and/or Stress) Multiple Studies (05/08/2024 8:55 AM CDT) Anatomical Region Laterality Modality Body N/A Nuclear Medicine 05/08/2024 8:14 AM CDT Narrative 05/09/2024 10:40 AM CDT [address] [place] [address] [employer] Report Patient Name: ROLLY ARROYO A : 1940 Study Date: 05/08/2024 8:14:45 AM Gender: M Tech: Ref Provider: TAQUERIA ASTORGA Height(Cm): BSA: Weight(Kg): Order Provider: TQAUERIA ASTORGA PROCEDURES: Pharmacologic SPECT Report.: Myocardial perfusion imaging with Sestamibi SPECT at rest and post regadenoson (Lexiscan) infusion. INDICATIONS: R06.02 Shortness of breath. FINDINGS: Procedure Data: Sestamibi injected at rest was 10.3 millicuries Sestamibi injected at peak exercise was 30.8 millicuries Predicted Maximal HR 139 bpm Perfusion: Normal perfusion imaging. LV Function: Left ventricular ejection fraction is 61 %. CONCLUSIONS: 1. Myocardial Perfusion: Normal rest and stress images. 2. Left ventricle: Normal size and systolic function (visually confirmed EF >50%). Electronically Signed By: Kaylee Perdomo MD 05/09/2024 10:10:42 AM CDT Procedure Note Kaylee Perdomo MD - 05/09/[address] [place] [address] [employer] Report Patient Name: ROLLY ARROYO A : 1940 Study Date: 05/08/2024 8:14:45 AM Gender: M Tech: Ref Provider: TAQUERIA ASTORGA Height(Cm): BSA: Weight(Kg): Order Provider: TAQUERIA ASTORGA PROCEDURES: Pharmacologic SPECT Report.: Myocardial perfusion imaging with Sestamibi SPECT at rest and postregadenoson (Lexiscan) infusion. INDICATIONS: R06.02 Shortness of breath. FINDINGS: Procedure Data: Sestamibi injected at rest was 10.3 millicuries Sestamibi injected at peak exercise was 30.8 millicuries Predicted Maximal HR 139 bpm Perfusion: Normal perfusion imaging. LV Function: Left ventricular ejection fraction is 61 %. CONCLUSIONS: 1. Myocardial Perfusion: Normal rest and stress images. 2. Left ventricle: Normal size and systolic function (visually confirmedEF >50%). Electronically Signed By: Kaylee Perdomo MD 05/09/2024 10:10:42 AM CDT Taqueira Astorga MD [facility] PROCEDURES Final Result * Stress Test for Myocardial Perfusion (05/08/2024 8:55 AM CDT) Anatomical Region Laterality Modality Nuclear Medicine 05/08/2024 7:45 AM CDT Narrative 05/08/2024 9:39 AM CDT [address] [address] [employer] Report Patient Name: ROLLY ARROYO A : 1940 Study Date: 05/08/2024 7:45:00 AM Gender: M Tech: ronny isaac Ref Provider: TAQUERIA ASTORGA Height(Cm): 183 BSA: 3.07 Weight(Kg): 186 Heart Rate: 118 Order Provider: TAQUERIA ASTORGA PROCEDURES: Pharmacologic SPECT Report.: Myocardial perfusion imaging with Sestamibi SPECT at rest and post regadenoson (Lexiscan) infusion. INDICATIONS: Shortness Of Breath and R06.02 Shortness of breath. FINDINGS: Procedure Data: Resting HR 76 bpm Peak HR: 115 bpm Predicted Maximal HR 139 bpm Target HR: 118 bpm Percent Max Predicted HR Achieved: 82.73 % Baseline BP: 137/73 mmHg Peak BP: 152/83 mmHg Exercise Time: 00:10 Performed By: rivas sanchez rn. Supervising Physician: The Supervising Physician is liban. Reason for Termination: Lexiscan protocol complete. Resting ECG: Normal sinus rhythm. Normal resting ECG. Post Pharm ECG: No diagnostic ST changes. Arrhythmia: Occasional PVCs. CONCLUSIONS: 1. Negative Lexiscan pharmacologic stress test for chest pain or EKG changes. 2. Nuclear images are pending and they will be reported separately. Electronically Signed By: Taqueria Astorga MD 05/08/2024 9:38:34 AM CDT Procedure Note Taqueria Astorga MD - 05/08/[address] [address] Lexiscan Report Patient Name: ROLLY ARROYO A : 1940 Study Date: 05/08/2024 7:45:00 AM Gender: M Tech: ronny isaac Ref Provider: TAQUERIA ASTORGA Height(Cm): 183 BSA: 3.07 Weight(Kg): 186 Heart Rate: 118 Order Provider: TAQUERIA ASTORGA PROCEDURES: Pharmacologic SPECT Report.: Myocardial perfusion imaging with Sestamibi SPECT at rest and postregadenoson (Lexiscan) infusion. INDICATIONS: Shortness Of Breath and R06.02 Shortness of breath. FINDINGS: Procedure Data: Resting HR 76 bpm Peak HR: 115 bpm Predicted Maximal HR 139 bpm Target HR: 118 bpm Percent Max Predicted HR Achieved: 82.73 % Baseline BP: 137/73 mmHg Peak BP: 152/83 mmHg Exercise Time: 00:10 Performed By: rivas sanchez rn. Supervising Physician: The Supervising Physician is liban. Reason for Termination: Lexiscan protocol complete. Resting ECG: Normal sinus rhythm. Normal resting ECG. Post Pharm ECG: No diagnostic ST changes. Arrhythmia: Occasional PVCs. CONCLUSIONS: 1. Negative Lexiscan pharmacologic stress test for chest pain or EKGchanges. 2. Nuclear images are pending and they will be reported separately. Electronically Signed By: Taqueria Astorga MD 05/08/2024 9:38:34 AM CDT Taqueria Astorga MD CV STRESS PROCEDURES Final Resu lt from Last 3 Months Insurance MEDICARE [facility] [employer] PLAN MEDICARE MEDICARE [facility] [employer]AN MEDICARE [facility] Advance Directives For more information, please contact: [phone] * Full Code (Latest Code Status on File) Date Activated Date Inactivated Comments 09/24/2023 12:52 PM 09/24/2023 8:10 PM * Full Code Date Activated Date Inactivated Comments 09/24/2023 12:52 PM 09/24/2023 12:52 PM * Full Code Date Activated Date Inactivated Comments 03/21/2021 2:11 PM 03/22/2021 5:18 PM * Full Code Date Activated Date Inactivated Comments 06/08/2018 6:58 PM 03/21/2021 8:40 AM * Full Code Date Activated Date Inactivated Comments 06/05/2018 2:53 PM 06/07/2018 6:50 PM Care Teams Group Home Paraprofessional Relationship Specialty Start Date End Date Vincent Calderon MD PCP - General 05/09/16 Andrew Zazueta MD Surgeon Orthopedic Surgery 03/22/21 David Sharpe III, MD [address] [place] [address] Referring Physician Cardiology 02/13/22
--- OUTSIDE RECORDS SUMMARY | 2024-06-09 16:51 | XMS_ITS | Clinical Summary ---
Author Organization [facility] Address [address] [place] [address] Care Team Providers Care Invasive Cardiovascular Technologist Name Role Phone Vincent Calderon MD Primary Care Provider [phone] Krupa Lofton MD Unavailable Allergies Active Allergy Reactions Criticality Noted Date Comments Azithromycin Other (see comment) Low 06/05/2018 Altered taste Meloxicam Swelling Medium 02/12/2017 Fluid retention and high blood pressure Fluid retention and high blood pressure Morphine Nausea Only Low 12/08/2016 Nausea and vomiting for 5 hours after surgery Nausea and vomiting for 5 hours after surgery Medications SYNTHROID 50 MCG tablet Take 1 tablet (50 mcg total) by mouth daily. 01/10/2019 Active pravastatin 10 MG tablet Take 1 tablet (10 mg total) by mouth daily. Active pramipexole 0.5 MG tablet Take 2 tablets (1 mg total) by mouth daily. 01/10/2019 Active doxycycline hyclate 100 MG capsule Take 1 capsule (100 mg total) by mouth daily. 12/05/2016 Active spironolactone 25 MG tablet Take 1 tablet (25 mg total) by mouth every morning. 90 tablet 3 05/27/2019 Active irbesartan-hydr ochlorothiazide 150-12.5 MG Tab Take 1 tablet by mouth daily. 11/15/2020 Active Glucosamine-Cho ndroit-Vit C-Mn (GLUCOSAMINE 1500 COMPLEX OR) As directed Active vitamin D3, cholecalciferol , 5000 UNITS capsule Take 1 capsule (125 mcg total) by mouth daily. Active magnesium oxide (MAG-OX) 400 MG tablet Take 1 tablet (400 mg total) by mouth daily. Active Potassium 99 MG tablet Take 1 tablet by mouth daily. Active Multiple Vitamin (MULTIVITAMIN ADULT) Tab Take 1 tablet by mouth daily. Active Calcium Carbonate-Vit D-Min (CALCIUM 1200 OR) Take 1 tablet by mouth daily. Active metoprolol succinate ER (TOPROL-XL) 50 MG 24 hr tablet TAKE 1 TABLET DAILY 90 tablet 3 05/02/2022 Active gabapentin (NEURONTIN) 300 MG capsule 12/25/2022 Active HYDROcodone-dana taminophen (NORCO) 5-325 MG tablet Take 0.5-1 tablets by mouth nightly at bedtime. 01/03/2023 Active furosemide (LASIX) 20 MG tablet take 1 tablet every morning 90 tablet 3 06/05/2023 Active Active Problems Problem Noted Date Diagnosed Date Moderate obstructive sleep apnea 04/27/2019 Essential hypertension 04/27/2019 Hyperlipidemia 04/27/2019 Abnormal echocardiogram 04/27/2019 Encounters Date Type Department Care Team Description 05/28[facility]2024 [facility] [address] [place] [address] Krupa Lofton MD Medication Request from Last 3 Months Family History Medical History Relation Comments COPD Father Emphysema Father Colon Cancer Mother Tuberculosis Mother Relation Status Comments Father Mother Social History Tobacco Use Types Packs/Day Years Used Date Smoking Tobacco: Never Smokeless Tobacco: Never Tobacco Cessation:Counseling Given: Not Answered Alcohol Use Standard Drinks/Week Comments Never 0 (1 standard drink = 0.6 oz pur e alcohol) AUDIT-C Answer Date Recorded Frequency of Alcohol Consumption Never 06/08/2020 Average Number of Drinks Not on file 021 Frequency of Binge Drinking Not on file 05/2020 Sex and Gender Information Value Date Recorded Sex Assigned at Not on file Legal Sex Male 9:23 AM ARMATURE COIL WINDER Gender Identity Not on file Sexual Orientation Not on file 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 Not on file Not on file Not on file Last Filed Vital Signs Vital Sign Reading Time Taken Comments Blood Pressure 136/79 01/18/2023 10:36 AM ARMATURE COIL WINDER Pulse 71 01/18/2023 10:36 AM ARMATURE COIL WINDER Temperature - - Respiratory Rate 17 01/18/2023 10:36 AM ARMATURE COIL WINDER Oxygen Saturation 96% 01/18/2023 10:36 AM ARMATURE COIL WINDER Inhaled Oxygen Concentration - - Weight 86.4 kg (190 lb 6.4 oz) 01/18/2023 10:36 AM ARMATURE COIL WINDER Height 182.9 cm (6') 01/18/2023 10:36 AM ARMATURE COIL WINDER Body Mass Index 25.82 01/18/2023 10:36 AM ARMATURE COIL WINDER Plan of Treatment Health Maintenance Due Date Last Done Comments DTaP, Tdap and Td Vaccines ( 1 - Tdap) 1961 Pneumococcal Vaccine: 50+ Years (1 of 1 - PCV) 1992 Annual Medicare Wellness Visit 07/10/2007 Zoster Vaccines (2 of 3) 02/28/2012 01/03/2012 RSV Immunization or 60+ Years (1 - 1-dose 75+ series) 2017 COVID-19 Vaccine (3 - 2023-2 5 season) 2023 08/14/2020, 07/24/2020 Meningococcal B Vaccine Aged Out No l onger eligible based on patient's age to complete this topic Meningococcal Vaccine Aged Out No wu beto eligible based on patient's age to complete this topic RSV Immunizations Under 20 Months Aged Out No longer eligible b ased on patient's age to complete this topic Insurance [place] [place] [address] [place] [id number] [employer] Member Subscriber Plan / Payer (Ef fective 2020-Present) Name:Rolly Gray Relation to Subscriber:Self Name:Rolly Gray Payer ID:Not on file Group ID:[id number] Type:Not on file Address: [place], [place] MEDICARE [facility] [employer] Care Teams Invasive Cardiovascular Technologist Relationship Specialty Start Date End Date Vincent Calderon MD [address] [place] [address] PCP - General INTERNAL MEDICINE 03/04/19 Krupa Lofton MD [address] [place] [address] Consulting Physician CARDIOVASCULAR DISEASE 05/31/23
--- OUTSIDE RECORDS SUMMARY | 2024-06-09 16:51 | XMS_ITS | Clinical Summary ---
Author Organization [facility] Address [address] [place] [address] Care Team Providers Care Coat Joiner Name Role Phone Vincent Calderon MD Primary Care Provider Andrew Zazueta MD Unavailable Dell BECKER MD, David Gtz Unavailable Allergies Active Allergy Reactions Criticality Noted Date Comments Azithromycin Other (See comments) Low 06/05/2018 Altered taste Meloxicam Swelling Medium 02/12/2017 Fluid retention and high blood pressure Morphine Nausea only Low 12/08/2016 Nausea and vomiting for 5 hours after surgery Medications levothyroxine (SYNTHROID) 50 mcg tablet Take 1 tablet (50 mcg total) by mouth airport manager before breakfast 0 06/08/19 19 Active cholecalcifero l (VITAMIN D-3) 25 mcg (1,000 unit) tablet Take 1 tablet (1,000 Units total) by mouth daily Active doxycycline hyclate 100 mg capsule Take 1 tablet/capsul e (100 mg total) by mouth daily 07/20/19 20 Active glucosam-michael- kgj2-E-fych-renita sw 750 mg-644 mg- 30 mg-1 mg [...] tablet/chew tab 03/22/19 22 025 Discontinued vit C-Z-efyvkb-zin c-lutein 226-90-0.8-5 mg capsule Take by mouth [...] (02/19/2018): Added automatically from request for surgery [id number] Family hx of colon cancer 02/19/2018 Overview (02/19/2018): Added automatically from request for surgery [id number] Closed fracture of right hip requiring operative repair Resolved Problems Problem Noted Date Diagnosed Date Resolved Date Primary osteoarthritis of left hip 01/26/2021 04/05/2021 Overview (01/26/2021): Added automatically from request for surgery [id number] Encounters Date Type Department Care Team Description 06/02/2024 10:15 AM CDT Office Visit [place] [facility] at [facility] [address] [facility] [address] [place] [address] Brittani Calvillo NP Primary hypertension (Primary Dx); Mixed hyperlipidemia; SOB (shortness of breath) 05/08/2024 7:51 AM CDT - 05/08/2024 11:59 PM CDT Hospital Encounter [facility] Cardiology [address] [place] [address] Primary hypertension Discharge Disposition: Discharge to home or self care 05/08/2024 7:51 AM CDT - 05/08/2024 11:59 PM CDT Hospital Encounter [address] [address] Discharge Disposition: Discharge to home or self care 05/08/2024 7:51 AM CDT - 05/08/2024 11:59 PM CDT Hospital Encounter [facility] Cardiology [address] [place] [address] SOB (shortness of breath) Discharge Disposition: Discharge to home or self care 05/08/2024 7:50 AM CDT - 05/08/2024 11:59 PM CDT Hospital Encounter [address] [address] Discharge Disposition: Discharge to home or self care 05/08/2024 7:45 AM CDT - 05/08/2024 11:59 PM CDT Hospital Encounter [address] [address] SOB (shortness of breath) Discharge Disposition: Discharge to home or self care 04/07/2024 9:30 AM FINANCIAL WELLNESS COACH Office Visit [place] [facility] [employer] [facility] at [address] [place] [phone] Taqueria Astorga MD Precordial pain (Primary Dx); Pericardial effusion; Mixed hyperlipidemia; Primary hypertension; SOB (shortness of breath) from Last 3 Months Surgical History Surgery Date Site/Laterality Comments ROTATOR CUFF REPAIR Right Rotator cuff repair OTHER SURGICAL HISTORY Right knee arthroscopic COLONOSCOPY 02/18/2013 REPLACEMENT TOTAL KNEE BILATERAL 02/05/2017 - 03/07/2017 HIP FRACTURE SURGERY Right COLONOSCOPY 03/08/2018 - 04/04/2018 COLONOSCOPY 09/24/2023 CATARACT EXTRACTION Bilateral HIP ARTHROPLASTY Bilateral REPLACEMENT TOTAL KNEE Bilateral LUMBAR DISC SURGERY Medical History Medical History Date Comments Hypercholesterolemia High choles terol; Comments: [facility] 04/14/2014 - Hypertension Hypertension Disorder of thyroid Thyroid dise ase Arthritis Arthritis; Comme nts: [facility] 04/14/2014 - Colon polyp Sleep apnea PONV (postoperative nausea and vomiting) History of peripheral edema Restless leg syndrome Family History Medical History Relation Name Comments Emphysema Father Colon cancer Mother Colon cancer Other Family history of Cancer, colon; Lung cancer Sister Relation Name Status Comments Father Mother Other Sister Social History Tobacco Use Types Packs/Day Years [...] on file Legal Sex Male 1:55 PM FINANCIAL WELLNESS COACH Gender Identity Not on file Sexual Orientation Not on file Obstetrics History Last Filed Vital Signs Vital Sign Reading Time Taken Comments Blood Pressure 150/79 06/02/2024 10:18 AM CDT Pulse 59 06/02/2024 10:18 AM CDT Temperature 36.4 C (97.6 F) 01/06/2024 7:18 AM FINANCIAL WELLNESS COACH Respiratory Rate 18 06/02/2024 10:18 AM CDT Oxygen Saturation 96% 01/06/2024 11:00 AM FINANCIAL WELLNESS COACH Inhaled Oxygen Concentration - - Weight 83 kg (183 lb) 06/02/2024 10:18 AM CDT Height 182.9 cm (6') 06/02/2024 10:18 AM CDT Body Mass Index 24.82 06/02/2024 10:18 AM CDT Plan of Treatment Health Maintenance Due Date Last Done Comments DTaP/Tdap/Td Vaccine (1 - Tdap) 1953 Hepatitis B Screening 1960 Pneumococcal vaccine 65+ (1 of 1 - PCV) 1992 Well Visit 65+ 07/10/2007 Zoster Vaccine (2 of 3) 02/28/2012 01/03/2012 Depression Screening 03/09/2022 03/09/2021, 06/06/19 Covid-19 Vaccine ( season) 10/07/202311/2020, 07/24/2020 Fall Risk Assessment 09/23/2024 09/24/2023 Influenza Vaccine (Season Ended) 2024 Medical Devices Implanted Type Area And Drying Supervisor Cooking Casing Device Identifier Shelf Expiration Date Model / Serial / Lot Acetabular Shell Sector Implanted:Qty: 1 on 06/06/2018 by Andrew Zazueta MD at [facility] Right: Hip [employer] [id number] 03/07/2028 [id number] / / [id number] [employer] 1217-35-500 [place] 6.5mm 35mm Acetabular Cancellous Screw Bone Sterile - [id number] Implanted:Qty: 1 on 06/06/2018 by Andrew Zazueta MD at [facility] Right: Hip [employer] 02/05/2028 1217-35-500 / / [id number] [employer] [id number] [place] 58mm 36mm Hip Neutral Liner Acetabular Altrx Sterile Latex Free - [id number] Implanted:Qty: 1 on 06/06/2018 by Andrew Zazueta MD at [facility] Right: Hip [employer] 03/07/2023 [id number] / / [id number] [employer] [id number] Actis Collar Hip 8 Standard Offset Stem Femoral - [id number] Implanted:Qty: 1 on 06/06/2018 by Andrew Zazueta MD at [facility] Right: Hip [employer] 10/06/2027 [id number] / / [id number] [employer] 1365-36-330 Articul/Matt 36mm Cementless Hip +8.5mm 12/14 Taper Head Femoral Latex Free - [id number] Implanted:Qty: 1 on 06/06/2018 by Andrew Zazueta MD at [facility] Right: Hip [employer] 04/05/2023 1365-36-330 / / [id number] [employer] 1365-36-330 Articul/Matt 36mm Cementless Hip +8.5mm 12/14 Taper Head Femoral Latex Free - [id number] Implanted:Qty: 1 on 03/21/2021 by Andrew Zazueta MD at [facility] Left: Hip [employer] 12/05/2025 1365-36-330 / / [id number] [employer] [id number] [place] 58mm Sector Hip Shell Acetabular Gription Sterile Latex Free - [id number] Implanted:Qty: 1 on 03/21/2021 by Andrew Zazueta MD at [facility] Left: Hip [employer] 11/04/2030 [id number] / / [id number] [employer] [id number] [place] 58mm 36mm Hip Neutral Liner Acetabular Altrx Sterile Latex Free - [id number] Implanted:Qty: 1 on 03/21/2021 by Andrew Zazueta MD at [facility] Left: Hip [employer] 01/04/2026 [id number] / / [id number] [employer] 1217-35-500 [place] 6.5mm 35mm Acetabular Cancellous Screw Bone Sterile - [id number] Implanted:Qty: 1 on 03/21/2021 by Andrew Zazueta MD at [facility] Left: Hip [employer] 12/05/2030 1217-35-500 / / [id number] [employer] [id number] Actis Collar Hip 9 High Offset Stem Femoral - [id number] Implanted:Qty: 1 on 03/21/2021 by Andrew Zazueta MD at [facility] Left: Hip [employer] 01/04/2031 [id number] / / [id number] Procedures Procedure Name Priority Date/Time Associated Diagnosis [...] AM CDT Narrative 05/08/2024 1:15 PM CDT [address] [address] Echocardiogram Report Patient Name: ROLLY GRAY A : 1940 Study Date: 05/08/2024 9:34:03 AM Gender: M Tech: AA Location: echo room 1 Ref Provider: TAQUREIA ASTORGA Height(Cm): BSA: Weight(Kg): Quality: Good Order [...] Procedure Note Taqueria Astorga MD - 05/08/[address] [address] Echocardiogram Report Patient Name: ROLLY GRAY A : 1940 Study Date: 05/08/2024 9:34:03 [...] Taqueria Astorga MD 05/08/2024 1:15:32 PM CDT Taqueria Astorga MD CV ECHO PROCEDURES Final Result * NM MPI SPECT (Rest and/or Stress) Multiple Studies (05/08/2024 8:55 AM CDT) Anatomical Region Laterality Modality Body N/A Nuclear Medicine 05/08/2024 8:14 AM CDT Narrative 05/09/2024 10:40 AM CDT [address] [place] [address] [facility] Report Patient Name: ROLLY GRAY A : 1940 Study Date: 05/08/2024 8:14:45 [...] Procedure Note Kaylee Perdomo MD - 05/09/2024 [place] [address] [facility] Report Patient Name: ROLLY GRAY A : 1940 Study Date: 05/08/2024 8:14:45 [...] Kaylee Perdomo MD 05/09/2024 10:10:42 AM CDT Taqueria Astorga MD [facility] PROCEDURES Final Result * Stress Test for Myocardial Perfusion (05/08/2024 8:55 AM CDT) Anatomical Region Laterality Modality Nuclear Medicine 05/08/2024 7:45 AM CDT Narrative 05/08/2024 9:39 AM CDT [address] [address] [facility] Report Patient Name: ROLLY GRAY A : 1940 Study Date: 05/08/2024 7:45:00 AM Gender: M Tech: ronny Luo Provider: TAQUERIA ASTORGA Height(Cm): 183 BSA: 3.07 [...] Procedure Note Taqueria Astorga MD - 05/08/[address] [address] [facility] Report Patient Name: ROLLY GRAY A : 1940 Study Date: 05/08/2024 7:45:00 AM Gender: M Tech: ronny iasac Ref Provider: TAQUERIA ASTORGA Height(Cm): 183 BSA: [...] Taqueria Astorga MD 05/08/2024 9:38:34 AM CDT us Taqueria Astorga MD CV STRESS PROCEDURES Final Resu lt from Last 3 Months Insurance MEDICARE [facility] HEALTH BENEFIT PLAN [facility]/PP[facility] Address: [address] [place], [place] MEDICARE MEDICARE [facility] HEALTH BENEFIT PLAN [employer] Address: [address] [place] [address] MEDICARE [facility] HEALTH BENEFIT PLAN Advance Directives For more information, please contact: [phone] * Full Code (Latest Code Status on [...] 2:53 PM 06/07/2018 6:50 PM Care Teams Coat Joiner Relationship Specialty Start Date End Date Vincent Calderon MD PCP - General 05/09/16 Andrew Zazueta MD Surgeon Orthopedic Surgery 03/22/21 David Sharpe III, MD [address] [place] [address] Referring Physician Cardiology 02/13/22
--- OUTSIDE RECORDS SUMMARY | 2024-06-09 16:51 | XMS_ITS | Clinical Summary ---
Author Organization [facility] Address [address] [facility] [place] [address] Care Team Providers Care Head Up Operator Helper Name Role Phone Unavailable Primary Care Provider Unavailabl e Source Comments [facility],non-owned Affiliates and Associated Physician Practices is amultiple site organization consisting of ambulatory clinics and hospital sitesin [place], [place], [place] and [place]. This disclosure is being madepursuant to the Care Everywhere program and may not contain all information available regarding this patient. Last updated 17.[facility] Allergies Active Allergy Reactions Criticality Noted Date Comments Meloxicam Swelling 02/12/2017 Fluid retention and high blood pressure Morphine 12/08/2016 Nausea and vomiting for 5 hours after surgery Medications * Be aware that medications may not be up to date on this document. Alwaysverify current medications with the patient. SYNTHROID 50 MCG tablet Take 50 mg by mouth once daily 7 Active olmesartan-hyd roCHLOROthiazi de (BENICAR HCT) 40-25 MG tablet Take 1 tablet by mouth once daily 7 Active pramipexole (MIRAPEX) 0.5 MG tablet Take 0.5 mg by mouth 2 times daily 7 Active doxycycline hyclate (VIBRAMYCIN) 100 MG capsuleIndicat ions:rosacea Take 100 mg by mouth every evening Reasons: rosacea 7 Active vitamin C (ASCORBIC ACID) 1000 MG tablet Take 1,000 mg by mouth once daily Active vitamin D3 (CHOLECALCIFER OL) 1000 UNITS tablet Take 1,000 Units by mouth once daily Active magnesium oxide (MAG-OX) 400 MG tablet Take 400 mg by mouth once daily Active potassium gluconate 595 (99 K) MG tablet Take 1 tablet by mouth once daily Active calcium carbonate-pilo min D 600-400 MG-UNIT tablet Take 1 tablet by mouth once daily Active Lecithin 1200 MG Take 1 capsule by mouth once daily Active pravastatin (PRAVACHOL) 10 MG tablet Take 10 mg by mouth once daily Active acetaminophen (TYLENOL) 325 MG tablet Take 650 mg by mouth every 4 hours as needed for Headache Maximum allowable Acetaminophen amount = 4 Grams (4000 mg) / 24 hours. Active senna-docusate (SENOKOT-S) 8.6-50 MG tablet Take 1 tablet by mouth 2 times daily 30 tablet 8 Active oxyCODONE-acet aminophen (PERCOCET) 5-325 MG tablet Take 1 tablet by mouth every 4 hours as needed for Pain 30 tablet 8 Active Active Problems Problem Noted Date Diagnosed Date Status post total bilateral knee replacement Primary osteoarthritis of both knees 12/17/2016 Social History Tobacco Use Types Packs/Day Years Used Date Smoking Tobacco: Never Smokeless Tobacco: Never Alcohol Use Standard Drinks/Week Comments No 0 (1 standard drink = 0.6 oz pur e alcohol) Sex and Gender Information Value Date Recorded Sex Assigned at Not on file Legal Sex Male 2:35 PM CDT Gender Identity Not on file Sexual Orientation Not on file Last Filed Vital Signs Vital Sign Reading Time Taken Comments Blood Pressure 123/78 03/05/2017 11:15 AM BRAZING MACHINE SETTER Pulse 90 03/05/2017 11:15 AM BRAZING MACHINE SETTER Temperature 37.3 C (99.1 F) 03/05/2017 11:15 AM BRAZING MACHINE SETTER Respiratory Rate 18 03/05/2017 11:15 AM BRAZING MACHINE SETTER Oxygen Saturation 94% 03/05/2017 11:15 AM BRAZING MACHINE SETTER Inhaled Oxygen Concentration - - Weight 81.2 kg (179 lb) 03/07/2018 8:16 AM BRAZING MACHINE SETTER Height 182.9 cm (6') 03/07/2018 8:16 AM BRAZING MACHINE SETTER Body Mass Index 24.28 03/07/2018 8:16 AM BRAZING MACHINE SETTER Plan of Treatment Health Maintenance Due Date Last Done Comments MEDICARE AWV 12 MONTHS 1942 DTAP/TDAP/TD VACCINES (1 - Tdap) 1961 PNEUMOCOCCAL VACCINE 50+ (1 of 1 - PCV) 1992 ZOSTER VACCINE (1 of 2) 1992 Respiratory Syncytial Virus (RSV) Vaccine Pt: or over 60 yrs (1 - 1-dose 75+ series) 2017 COVID-19 VACCINE (2023-2 5 season) 2023 DEPRESSION SCREENING 02/06/2024 INFLUENZA VACCINE (Season Ended) 2024 HEPATITIS B VACCINE Aged Out No longe r eligible based on patient's age to complete this topic HIB VACCINE Aged Out No longer eligi ble based on patient's age to complete this topic HPV VACCINE Aged Out No longer eligi ble based on patient's age to complete this topic MENINGOCOCCAL (Group B) VACC INE SHARED DECISION-MAKING Aged Out No longer eligibl e based on patient's age to complete this topic MENINGOCOCCAL GROUPS A/C/Y/W VACCINE Aged Out No longer eligible b ased on patient's age to complete this topic Medical Devices Implanted Type Area Ict Teacher Device Identifier Shelf Expiration Date Model / Serial / Lot Cmnt Bone Plc R 40gm Grn Implanted:Qty: 1 on 03/02/2017 by Urbano Arambula MD at [facility] Knee [employer] 07/05/2021 [id number] / / [id number] Sue Ii Resurfacing Patellar Component Implanted:Qty: 1 on 03/02/2017 by Urbano Arambula MD at [facility] Left: Knee [employer] 12/31/2026 [id number] / / [id number] A/P 52mm. M/L 74mm Articular Insert Implanted:Qty: 1 on 03/02/2017 by Urbano Arambula MD at [facility] Right: Knee [employer] 07/18/2026 [id number] / / [id number] A/P 52mm, M/L 74mm Articular Insert Implanted:Qty: 1 on 03/02/2017 by Urbano Arambula MD at [facility] Left: Knee [employer] 07/11/2026 [id number] / / [id number] Cmnt Bone Plc R 40gm Grn Implanted:Qty: 3 on 03/02/2017 by Urbano Arambula MD at [facility] Knee [employer] 08/04/2021 [id number] / / [id number] Oval Sue Ii Resurfacing Patellar Component Implanted:Qty: 1 on 03/02/2017 by Urbano Arambula MD at [facility] Right: Knee [employer] 07/10/2026 [id number] / / [id number] Femoral Component Implanted:Qty: 1 on 03/02/2017 by Urbano Arambula MD at [facility] Right: Knee [employer] 12/09/2026 [id number] / / [id number] Nonporous Tibial Baseplate Implanted:Qty: 1 on 03/02/2017 by Urbano Arambula MD at [facility] Right: Knee [employer] 09/19/2026 [id number] / / [id number] Nonporous Tibial Base Plate Implanted:Qty: 1 on 03/02/2017 by Urbano Arambula MD at [facility] Left: Knee [employer] 04/23/2026 [id number] / / [id number] Cmpnt Fem Kn Lt 6 Bicruciate Stab Implanted:Qty: 1 on 03/02/2017 by Urbano Arambula MD at [facility] Left: Knee [employer] 12/23/2026 [id number] / / [id number] Explanted Type Area Ict Teacher Device Identifier Shelf Expiration Date Model / Serial / Lot Vis Cut Guidejii Kit Rt Explanted:Qty: 1 on 03/02/2017 at [facility] Right: Knee [employer] 05/15/2017 [id number] / / [id number] Vis Cut Guide Jii Kit Lt Explanted:Qty: 1 on 03/02/2017 at [facility] Left: Knee [employer] 05/15/2017 [id number] / / [id number] Insurance MEDICARE [facility] [place] OF LETTER [facility] MEDICARE MEDICARE SELF PAY NO INSURANCE Member Subscriber Plan / Payer (Ef fective for All Dates) Name:Rafael Gray Member ID:Not on file Relation to Subscriber:Not on file Name:RAFAEL GRAY Subscriber ID:Not on file (Home) Address: [address] [place] [address] Payer ID:Not on file Group ID:Not on file Type:Self Pay Address: [place], [place] Advance Directives Documents on File Type Date Recorded 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
[2024-06-09 16:58] LABS: Hematocrit 36.8 % (37.0-46.0); Hemoglobin 12.2 g/dL (12.4-15.3); Mean Corpuscular HGB Conc 33.2 g/dL (32-36); Mean Corpuscular Hemoglobin 31.5 pg (27.0-31.0); Mean Corpuscular Volume 95.1 fL (78.0-102.0); Mean Platelet Volume 10.3 fl (8.7-11.0); Platelet Count Result 158 K/mm3 (150-420); Red Blood Count 3.87 M/mm3 (4.70-6.10); Red Cell Distribution Width 12.5 % (11.6-14.4); White Blood Count 6.5 K/mm3 (4.8-10.8)
[2024-06-09 17:39] LABS: Alanine Aminotransferase 24 U/L (16-63); Albumin Level 4.1 g/dL (3.4-5.0); Alkaline Phosphatase 74 U/L (46-116); Anion Gap 5 mmol/L (4-12); Aspartate Amino Transferase 21 U/L (15-37); Bilirubin,Total 0.8 mg/dL (0.00-1.00); Blood Urea Nitrogen 24 mg/dL (7-18); Calcium 9.6 mg/dL (8.5-10.1); Carbon Dioxide 34 mmol/L (21-32); Chloride 102 mmol/L (98-108); Creatine Kinase 120 U/L (39-308); Estimated Glomerular Filt Rate 56; Glucose 94 mg/dL (70-99); Osmolality Calculated 296 mOsm/kg (285-295); Potassium 4.5 mmol/L (3.5-5.1); Sodium 141 mmol/L (136-145); Total Protein 6.9 g/dL (6.4-8.2); Troponin I 7.9 ng/L (0.00-60.4)
[2024-06-09 17:43] LABS: CRP < 0.5 mg/dL (0.0-0.9)
== END 2024-06-09 16:29 | disposition home or self-care (01) ==
PROVIDERS: PCP Internal Medicine; Visit Provider Internal Medicine
DX: M54.2 Cervicalgia (principal); M25.512 Pain in left shoulder; R07.9 Chest pain, unspecified; M43.02 Spondylolysis, cervical region
CPT/HCPCS: 36415; 71046; 72040; 73030; 80053; 82550; 82553; 84484; 85027; 86140

== ENCOUNTER 2024-06-10 13:09 | Outpatient (CLI) | payer MEDICARE, SELFPAY ==
--- OUTSIDE RECORDS SUMMARY | 2024-06-10 13:19 | XMS_ITS | Clinical Summary ---
Author Organization 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 Not on file Not on file Not on file Last Filed Vital Signs Vital Sign Reading Time Taken Comments Blood Pressure 136/79 01/18/2023 10:36 AM SILK SCREEN PAINTER Pulse 71 01/18/2023 10:36 AM SILK SCREEN PAINTER Temperature - - Respiratory Rate 17 01/18/2023 10:36 AM SILK SCREEN PAINTER Oxygen Saturation 96% 01/18/2023 10:36 AM SILK SCREEN PAINTER Inhaled Oxygen Concentration - - Weight 86.4 kg (190 lb 6.4 oz) 01/18/2023 10:36 AM SILK SCREEN PAINTER Height 182.9 cm (6') 01/18/2023 10:36 AM SILK SCREEN PAINTER Body Mass Index 25.82 01/18/2023 10:36 AM SILK SCREEN PAINTER Plan of Treatment Health Maintenance Due Date [...] age to complete [place] [id number] [employer] Member Subscriber Plan / Payer (Ef fective 2020-Present) Name:Rolly Gray Relation to Subscriber:Self Name:Rolly Gray Payer ID:Not on file Group ID:[id number] Type:Not on file Address: [place], [place] MEDICARE [facility] [employer] Care Teams Bone Cooking Operator Relationship Specialty Start Date End Date Vincent Calderon MD [address] [place] [address] PCP - General INTERNAL MEDICINE 03/04/19 Krupa Lofton MD [address] [place] [address] Consulting Physician CARDIOVASCULAR DISEASE 05/31/23
--- OUTSIDE RECORDS SUMMARY | 2024-06-10 13:19 | XMS_ITS | Clinical Summary ---
Author Organization [facility] Address [address] [place] [address] Care Team Providers Care Railroad Repairer Name Role Phone Unavailable Primary Care Provider Unavailabl e Source Comments [facility],non-owned Affiliates and Associated Physician Practices is amultiple site organization consisting of ambulatory clinics and hospital sitesin [place] and [place]. This disclosure is being madepursuant to the Care Everywhere program and may not contain all information available regarding this patient. Last updated 17.[facility] Allergies Active Allergy Reactions Criticality Noted Date [...] Comments Blood Pressure 123/78 03/05/2017 11:15 AM BEHAVIOUR SUPPORT TEACHER Pulse 90 03/05/2017 11:15 AM BEHAVIOUR SUPPORT TEACHER Temperature 37.3 C (99.1 F) 03/05/2017 11:15 AM BEHAVIOUR SUPPORT TEACHER Respiratory Rate 18 03/05/2017 11:15 AM BEHAVIOUR SUPPORT TEACHER Oxygen Saturation 94% 03/05/2017 11:15 AM BEHAVIOUR SUPPORT TEACHER Inhaled Oxygen Concentration - - Weight 81.2 kg (179 lb) 03/07/2018 8:16 AM BEHAVIOUR SUPPORT TEACHER Height 182.9 cm (6') 03/07/2018 8:16 AM BEHAVIOUR SUPPORT TEACHER Body Mass Index 24.28 03/07/2018 8:16 AM BEHAVIOUR SUPPORT TEACHER Plan of Treatment Health Maintenance Due Date [...] this topic Medical Devices Implanted Type Area Deputy Treasurer Device Identifier Shelf Expiration Date Model / Serial / Lot Cmnt Bone Plc R 40gm Grn Implanted:Qty: 1 on 03/02/2017 by Urbano Arambula MD at [facility] Knee [employer] 07/05/2021 [id number] / / [id number] Sue Ii Resurfacing Patellar Component Implanted:Qty: 1 on 03/02/2017 by Urbano Arambula MD at [facility] Left: Knee [employer] 12/31/2026 [id number] / / [id number] A/P 52mm. M/L 74mm Articular Insert Implanted:Qty: 1 on 03/02/2017 by Urbano Arambula MD at [facility] Right: Knee [employer] 07/18/2026 [id number] / / [id number] A/P 52mm, M/L 74mm Articular Insert Implanted:Qty: 1 on 03/02/2017 by Urbano Arambula MD at [facility] Left: Knee [employer] 07/11/2026 [id number] / / [id number] Cmnt Bone Plc R 40gm Grn Implanted:Qty: 3 on 03/02/2017 by Urbano Arambula MD at [facility] Knee [employer] 08/04/2021 [id number] / / [id number] Sue Ii Resurfacing Patellar Component Implanted:Qty: 1 on 03/02/2017 by Urbano Arambula MD at [facility] Right: Knee [employer] 07/10/2026 [id number] / / [id number] Femoral Component Implanted:Qty: 1 on 03/02/2017 by Urbano Arambula MD at [facility] Right: Knee [employer] 12/09/2026 [id number] / / [id number] Nonporous Tibial Baseplate Implanted:Qty: 1 on 03/02/2017 by Urbano Arambula MD at [facility] Right: Knee [employer] 09/19/2026 [id number] / / [id number] Nonporous Tibial Base Plate Implanted:Qty: 1 on 03/02/2017 by Urbano Arambula MD at [facility] Left: Knee [employer] 04/23/2026 [id number] / / [id number] Cmpnt Fem Kn Lt 6 Bicruciate Stab Implanted:Qty: 1 on 03/02/2017 by Urbano Arambula MD at [facility] Left: Knee [employer] 12/23/2026 [id number] / / [id number] Explanted Type Area Deputy Treasurer Device Identifier Shelf Expiration Date Model / Serial / Lot Vis Cut Guidejii Kit Rt Explanted:Qty: 1 on 03/02/2017 at [facility] Right: Knee [employer] 05/15/2017 [id number] / / [id number] Vis Cut Guide Jii Kit Lt Explanted:Qty: 1 on 03/02/2017 at [facility] Left: Knee [employer] 05/15/2017 [id number] / / [id number] Insurance MEDICARE [facility] [employer] [facility] [place] MEDICARE MEDICARE SELF PAY NO INSURANCE Member Subscriber Plan / Payer (Ef fective for All Dates) Name:Rafael Gray Member ID:Not on file Relation to Subscriber:Not on file Name:RAFAEL GRAY Subscriber ID:Not on file (Home) Address: [address] [place] [address] Payer ID:Not on file Group ID:Not on file Type:Self Pay Address: [place], [place] Advance Directives Documents on File Type Date Recorded Patient Senior Computer Specialist Expl anation Adv Directive/Living Will/POA 03/06/2017 6:36 PM * Full Code (Latest Code Status on File) Date Activated Date Inactivated Comments 03/02/2017 6:15 PM 03/05/2017 4:41 PM
--- OUTSIDE RECORDS SUMMARY | 2024-06-10 13:19 | XMS_ITS | Clinical Summary ---
Author Organization [facility] Address [address] [place] [address] Care Team Providers Care Under Ground Miner Name Role Phone Vincent Calderon MD Primary Care Provider [phone] Andrew Zazueta MD Unavailable [phone] Dell BECKER MD, David Gtz Unavailable [phone] Allergies Active Allergy Reactions Criticality Noted Date Comments Azithromycin Other (See comments) Low 06/05/2018 Altered taste Meloxicam Swelling Medium 02/12/2017 Fluid retention and high blood pressure Morphine Nausea only Low 12/08/2016 Nausea and vomiting for 5 hours after surgery Medications levothyroxine (SYNTHROID) 50 mcg tablet Take 1 tablet (50 mcg total) by mouth career portals teacher before breakfast 0 06/08/19 19 Active cholecalcifero l (VITAMIN D-3) 25 mcg (1,000 unit) tablet Take 1 tablet (1,000 Units total) by mouth daily Active doxycycline hyclate 100 mg capsule Take 1 tablet/capsul e (100 mg total) by mouth daily 07/20/19 20 Active glucosam-michael- bap1-H-gwtl-renita sw 750 mg-644 mg- 30 mg-1 mg [...] tablet/chew tab 03/22/19 22 025 Discontinued vit K-U-hpbthv-zin c-lutein 226-90-0.8-5 mg capsule Take by mouth [...] (02/19/2018): Added automatically from request for surgery [id number] Family hx of colon cancer 02/19/2018 Overview (02/19/2018): Added automatically from request for surgery [id number] Closed fracture of right hip requiring operative repair Resolved Problems Problem Noted Date Diagnosed Date Resolved Date Primary osteoarthritis of left hip 01/26/2021 04/05/2021 Overview (01/26/2021): Added automatically from request for surgery [id number] Encounters Date Type Department Care Team Description 06/02/2024 10:15 AM CDT Office Visit [place] Service Rig Operator at [facility] [address] [facility] [address] [place] [address] Brittani Calvillo NP Primary hypertension (Primary Dx); Mixed hyperlipidemia; SOB (shortness of breath) 05/08/2024 7:51 AM CDT - 05/08/2024 11:59 PM CDT Hospital Encounter [facility] [address] [place] [address] Primary hypertension Discharge Disposition: Discharge to home or self care 05/08/2024 7:51 AM CDT - 05/08/2024 11:59 PM CDT Hospital Encounter [address] [address] Discharge Disposition: Discharge to home or self care 05/08/2024 7:51 AM CDT - 05/08/2024 11:59 PM CDT Hospital Encounter [facility] [address] [place] [address] SOB (shortness of breath) Discharge Disposition: Discharge to home or self care 05/08/2024 7:50 AM CDT - 05/08/2024 11:59 PM CDT Hospital Encounter [address] [address] Discharge Disposition: Discharge to home or self care 05/08/2024 7:45 AM CDT - 05/08/2024 11:59 PM CDT Hospital Encounter [address] [address] SOB (shortness of breath) Discharge Disposition: Discharge to home or self care 04/07/2024 9:30 AM VENETIAN BLIND ASSEMBLER Office Visit [place] Service Rig Operator at [address] [place] [phone] Taqueria Astorga MD Precordial pain (Primary [...] Date Comments Hypercholesterolemia High choles terol; Comments: [facility] 04/14/2014 - Hypertension Hypertension Disorder of thyroid Thyroid dise ase Arthritis Arthritis; Comme nts: [facility] 04/14/2014 - Colon polyp Sleep apnea PONV [...] on file Legal Sex Male 1:55 PM VENETIAN BLIND ASSEMBLER Gender Identity Not on file Sexual Orientation Not on file Obstetrics History Last Filed Vital Signs Vital Sign Reading Time Taken Comments Blood Pressure 150/79 06/02/2024 10:18 AM CDT Pulse 59 06/02/2024 10:18 AM CDT Temperature 36.4 C (97.6 F) 01/06/2024 7:18 AM VENETIAN BLIND ASSEMBLER Respiratory Rate 18 06/02/2024 10:18 AM CDT Oxygen Saturation 96% 01/06/2024 11:00 AM VENETIAN BLIND ASSEMBLER Inhaled Oxygen Concentration - - Weight 83 [...] Ended) 2024 Medical Devices Implanted Type Area Web Applications Architect Device Identifier Shelf Expiration Date Model / Serial / Lot Acetabular Shell Sector Implanted:Qty: 1 on 06/06/2018 by Andrew Zazueta MD at [facility] Right: Hip [employer] [id number] 03/07/2028 [id number] / / [id number] [employer] 1217-35-500 [place] 6.5mm 35mm Acetabular Cancellous Screw Bone Sterile - [id number] Implanted:Qty: 1 on 06/06/2018 by Andrew Zazueta MD at [facility] Right: Hip [employer] 02/05/2028 1217-35-500 / / [id number] [employer] [id number] [place] 58mm 36mm Hip Neutral Liner Acetabular Altrx Sterile Latex Free - [id number] Implanted:Qty: 1 on 06/06/2018 by Andrew Zazueta MD at [facility] Right: Hip [employer] 03/07/2023 [id number] / / [id number] [employer] [id number] Actis Collar Hip 8 Standard Offset Stem Femoral - [id number] Implanted:Qty: 1 on 06/06/2018 by Anderw Zazueta MD at [facility] Right: Hip [employer] 10/06/2027 [id number] / / [id number] [employer] 1365-36-330 Articul/Matt 36mm Cementless Hip +8.5mm 12/14 Taper Head Femoral Latex Free - [id number] Implanted:Qty: 1 on 06/06/2018 by Andrew Zazueta MD at [facility] Right: Hip [employer] 04/05/2023 1365-36-330 / / [id number] [employer] 1365-36-330 Articul/Matt 36mm Cementless Hip +8.5mm 12/14 Taper Head Femoral Latex Free - [id number] Implanted:Qty: 1 on 03/21/2021 by Andrew Zazueta MD at [facility] Left: Hip [employer] 12/05/2025 1365-36-330 / / [id number] [employer] [id number] [place] 58mm Sector Hip Shell Acetabular Gription Sterile Latex Free - [id number] Implanted:Qty: 1 on 03/21/2021 by Andrew Zazueta MD at [facility] Left: Hip [employer] 11/04/2030 [id number] / / [id number] [employer] [id number] [place] 58mm 36mm Hip Neutral Liner Acetabular Altrx Sterile Latex Free - [id number] Implanted:Qty: 1 on 03/21/2021 by Andrew Zazueta MD at [facility] Left: Hip [employer] 01/04/2026 [id number] / / [id number] [employer] 1217-35-500 [place] 6.5mm 35mm Acetabular Cancellous Screw Bone Sterile - [id number] Implanted:Qty: 1 on 03/21/2021 by Andrew Zazueta MD at [facility] Left: Hip [employer] 12/05/2030 1217-35-500 / / [id number] [employer] [id number] Actis Collar Hip 9 High Offset Stem Femoral - [id number] Implanted:Qty: 1 on 03/21/2021 by Andrew Zazueta MD at [facility] Left: Hip [employer] 01/04/2031 [id number] / / [id number] Procedures Procedure Name Priority Date/Time Associated Diagnosis [...] AM CDT Narrative 05/08/2024 1:15 PM CDT [address] [address] Echocardiogram Report Patient Name: ROLLY GRAY A [...] Procedure Note Taqueria Astorga MD - 05/08/[address] [address] Echocardiogram Report Patient Name: ROLLY GRAY A [...] AM CDT Narrative 05/09/2024 10:40 AM CDT [address] [place] [address] Fluorofinderiscan Report Patient Name: ROLLY GRAY A : [...] Procedure Note Kaylee Perdomo MD - 05/09/2024 [place] [address] Canines Report Patient Name: ROLLY GRAY A : [...] 05/09/2024 10:10:42 AM CDT Taqueria Astorga MD [facility] PROCEDURES Final Result * Stress Test for Myocardial Perfusion (05/08/2024 8:55 AM CDT) Anatomical Region Laterality Modality Nuclear Medicine 05/08/2024 7:45 AM CDT Narrative 05/08/2024 9:39 AM CDT [address] [address] Canines Report Patient Name: ROLLY GRAY A : [...] Procedure Note Taqueria Astorga MD - 05/08/[address] [address] Lexiscan Report Patient Name: ROLLY GRAY A [...] lt from Last 3 Months Insurance MEDICARE [facility] [place] MED[place] [facility] MEDICARE [facility] Advance Directives For more information, please contact: [phone] * Full Code (Latest Code Status on [...] 2:53 PM 06/07/2018 6:50 PM Care Teams Under Ground Miner Relationship Specialty Start Date End Date Vincent Calderon MD PCP - General 05/09/16 Andrew Zazueta MD Surgeon Orthopedic Surgery 03/22/21 aDvid Sharpe III, MD [address] [place] [address] Referring Physician Cardiology 02/13/22
--- OUTSIDE RECORDS SUMMARY | 2024-06-10 13:19 | XMS_ITS | Referral Summary ---
Author Organization [facility] Address [address] [place] [address] Care Team Providers Care User Experience Lead Name Role Phone Vincent Calderon MD Primary Care Provider [phone] Andrew Zazueta MD Unavailable [phone] Dell BECKER MD, David Gtz Unavailable Encounters Date Type Department Care Team Description 06/02/2024 10:15 AM CDT Office Visit [place] [facility] at [address] [place] [phone] Brittani Calvillo NP Primary hypertension (Primary Dx); Mixed hyperlipidemia; SOB (shortness of breath) 05/08/2024 7:51 AM CDT - 05/08/2024 11:59 PM CDT Hospital Encounter [address] [address] Discharge Disposition: Discharge to home or self care 05/08/2024 7:51 AM CDT - 05/08/2024 11:59 PM CDT Hospital Encounter [facility] Cardiology [address] [place] [id number] SOB (shortness of breath) Discharge Disposition: Discharge to home or self care 05/08/2024 7:50 AM CDT - 05/08/2024 11:59 PM CDT Hospital Encounter [address] [address] Discharge Disposition: Discharge to home or self care 05/08/2024 7:45 AM CDT - 05/08/2024 11:59 PM CDT Hospital Encounter [facility] Imaging Center [address] [place] [address] SOB (shortness of breath) Discharge Disposition: Discharge to home or self care 05/08/2024 7:51 AM CDT - 05/08/2024 11:59 PM CDT Hospital Encounter [facility] Cardiology [address] [place] [address] Primary hypertension Discharge Disposition: Discharge to home or self care 04/07/2024 9:30 AM PHYSICAL THERAPIST TECHNICIAN Office Visit [place] [facility] at [facility] [address] [facility] [address] [place] [phone] Taqueria Astorga MD Precordial pain (Primary Dx); [...] 1 tablet (50 mcg total) by mouth geospatial information scientist before breakfast 0 06/08/19 19 Active cholecalcifero l (VITAMIN D-3) 25 mcg (1,000 unit) tablet Take 1 tablet (1,000 Units total) by mouth daily Active doxycycline hyclate 100 mg capsule Take 1 tablet/capsul e (100 mg total) by mouth daily 07/20/19 20 Active glucosam-michael- dap9-U-hgsz-renita sw 750 mg-644 mg- 30 mg-1 mg [...] tablet/chew tab 03/22/19 22 025 Discontinued vit P-Z-nfgpwa-zin c-lutein 226-90-0.8-5 mg capsule Take by mouth [...] (02/19/2018): Added automatically from request for surgery [id number] Family hx of colon cancer 02/19/2018 Overview (02/19/2018): Added automatically from request for surgery [id number] Closed fracture of right hip requiring operative repair Resolved Problems Problem Noted Date Diagnosed Date Resolved Date Primary osteoarthritis of left hip 01/26/2021 04/05/2021 Overview (01/26/2021): Added automatically from request for surgery [id number] Social History Tobacco Use Types Packs/Day Years [...] on file Legal Sex Male 1:55 PM PHYSICAL THERAPIST TECHNICIAN Gender Identity Not on file Sexual Orientation Not on file Last Filed Vital Signs Vital Sign Reading Time Taken Comments Blood Pressure 150/79 06/02/2024 10:18 AM CDT Pulse 59 06/02/2024 10:18 AM CDT Temperature 36.4 C (97.6 F) 01/06/2024 7:18 AM PHYSICAL THERAPIST TECHNICIAN Respiratory Rate 18 06/02/2024 10:18 AM CDT Oxygen Saturation 96% 01/06/2024 11:00 AM PHYSICAL THERAPIST TECHNICIAN Inhaled Oxygen Concentration - - Weight 83 kg (183 lb) 06/02/2024 10:18 AM CDT Height 182.9 cm (6') 06/02/2024 10:18 AM CDT Body Mass Index 24.82 06/02/2024 10:18 AM CDT Plan of Treatment Not on file Medical Devices Implanted Type Area Rolled Seat Trimmer Device Identifier Shelf Expiration Date Model / Serial / Lot Acetabular Shell Sector Implanted:Qty: 1 on 06/06/2018 by Andrew Zazueta MD at [facility] Right: Hip [employer] [id number] 03/07/2028 1217-89623 / / [id number] [employer] 1217-35500 [place] 6.5mm 35mm Acetabular Cancellous Screw Bone Sterile - [id number] Implanted:Qty: 1 on 06/06/2018 by Andrew Zazueta MD at [facility] Right: Hip [employer] 02/05/2028 1217-35-500 / / [id number] [employer] [id number] [place] 58mm 36mm Hip Neutral Liner Acetabular Altrx Sterile Latex Free - [id number] Implanted:Qty: 1 on 06/06/2018 by Andrew Zazueta MD at [facility] Right: Hip [employer] 03/07/2023 [id number] / / [id number] [employer] [id number] Actis Collar Hip 8 Standard Offset Stem Femoral - [id number] Implanted:Qty: 1 on 06/06/2018 by Andrew Zazueta MD at [facility] Right: Hip [employer] 10/06/2027 [id number] / / [id number] [employer] 1365-36-330 Articul/Matt 36mm Cementless Hip +8.5mm 12/14 Taper Head Femoral Latex Free - [id number] Implanted:Qty: 1 on 06/06/2018 by Andrew Zazueta MD at [facility] Right: Hip [employer] 04/05/2023 1365-36-330 / / [id number] [employer] 1365-36-330 Articul/Matt 36mm Cementless Hip +8.5mm 12/14 Taper Head Femoral Latex Free - [id number] Implanted:Qty: 1 on 03/21/2021 by Andrew Zazueta MD at [facility] Left: Hip [employer] 12/05/2025 1365-36-330 / / [id number] [employer] [id number] Riddleton 58mm Sector Hip Shell Acetabular Gription Sterile Latex Free - [id number] Implanted:Qty: 1 on 03/21/2021 by Andrew Zazueta MD at [facility] Left: Hip [employer] 11/04/2030 [id number] / / [id number] [employer] [id number] Riddleton 58mm 36mm Hip Neutral Liner Acetabular Altrx Sterile Latex Free - [id number] Implanted:Qty: 1 on 03/21/2021 by Andrew Zazueta MD at [facility] Left: Hip [employer] 01/04/2026 [id number] / / [id number] [employer] 1217-35-500 Riddleton 6.5mm 35mm Acetabular Cancellous Screw Bone Sterile - [id number] Implanted:Qty: 1 on 03/21/2021 by Andrew Zazueta MD at [facility] Left: Hip [employer] 12/05/2030 1217-35-500 / / [id number] [employer] [id number] Actis Collar Hip 9 High Offset Stem Femoral - [id number] Implanted:Qty: 1 on 03/21/2021 by Andrew Zazueta MD at [facility] Left: Hip [employer] 01/04/2031 [id number] / / [id number] Procedures Procedure Name Priority Date/Time Associated Diagnosis [...] AM CDT Narrative 05/08/2024 1:15 PM CDT [address] [place] [address] Echocardiogram Report Patient Name: ROLLY ARROYO A [...] Procedure Note Taqueria Astorga MD - 05/08/[address] [place] [address] Echocardiogram Report Patient Name: ROLLY ARROYO A : 1940 Study Date: 05/08/2024 9:34:03 AM Gender: M Tech: AA Location: echo room 1 [facility] Provider: TAQUERIA ASTORGA Height(Cm): BSA: Weight(Kg): Quality: [...] AM CDT Narrative 05/09/2024 10:40 AM CDT [address] [place] [address] Soricimed Report Patient Name: ROLLY ARROYO A : [...] Procedure Note Kaylee Perdomo MD - 05/09/[address] [place] [address] Soricimed Report Patient Name: ROLLY ARROYO A : [...] 05/09/2024 10:10:42 AM CDT Taqueria Astorga MD [facility] PROCEDURES Final Result * Stress Test for Myocardial Perfusion (05/08/2024 8:55 AM CDT) Anatomical Region Laterality Modality Nuclear Medicine 05/08/2024 7:45 AM CDT Narrative 05/08/2024 9:39 AM CDT [address] [address] Soricimed Report Patient Name: ROLLY ARROYO A : [...] Procedure Note Taqueria Astorga MD - 05/08/[address] [address] [employer] Report Patient Name: ROLLY ARROYO A [...] lt from Last 3 Months Insurance MEDICARE [facility] BENEFIT PLAN MEDICARE MEDICARE [facility] MEDICARE [facility] Advance Directives For more information, please contact: [phone] * Full Code (Latest Code Status on [...] 2:53 PM 06/07/2018 6:50 PM Care Teams User Experience Lead Relationship Specialty Start Date End Date Vincent Calderon MD PCP - General 05/09/16 Andrew Zazueta MD Surgeon Orthopedic Surgery 03/22/21 David Sharpe III, MD [address] [place] [address] Referring Physician Cardiology 02/13/22
[2024-06-10 13:40] LABS: Immature Reticulocyte Fraction 15.9 % (2.0-16.52); Reticulocyte Hemoglobin Conten 35.3 pg (28.0-35.0)
[2024-06-10 14:45] LABS: Ferritin 95 ng/mL (26-388); Iron 42 ug/dL (65-175); Percent Iron Saturation 14 % (12-57)
[2024-06-12 05:59] LABS: Protein, Total 6.5 g/dL (6.1-8.1)
[2024-06-12 13:09] LABS: Red Blood Cell Folate 659 ng/mL RBC (>280)
[2024-06-13 10:03] LABS: Albumin 4.2 g/dL (3.8-4.8); Alpha 1 Globulin 0.3 g/dL (0.2-0.3); Alpha 2 Globulin 0.7 g/dL (0.5-0.9); Beta 1 Globulin 0.3 g/dL (0.4-0.6); Gamma Globulin 0.6 g/dL (0.8-1.7)
[2024-06-14 05:24] LABS: Methylmalonic Acid 234 nmol/L (85-423)
== END 2024-06-10 13:10 | disposition home or self-care (01) ==
LOC: CHSLAB 13:13
PROVIDERS: PCP Internal Medicine; Visit Provider Internal Medicine
DX: D64.9 Anemia, unspecified (principal)
CPT/HCPCS: 36415; 82728; 82747; 83540; 83550; 83921; 84155; 84165; 85046

== ENCOUNTER 2025-01-12 15:43 | Outpatient (CLI) | payer MEDICARE, SELFPAY ==
--- NOTE | 2025-01-12 | CONSULT_PTH ---
PATIENT: Rolly Gray LOC: [facility]#:[id number] AGE/SX: 84/M ROOM: RE01/12/[address]: Vincent Calderon MD : 1940 BED: DIS: 01/12/2025 SPEC #: [id number] RECD: 01/12/25 15:59 STATUS: RIO REMarcela #: [id number] ABBY: 01/12/25 00:[address]: Vincent Calderon DEPT: [facility] Consult RECD BY: Mariola Snider MLT, ([facility]) Tissues: A - Peripheral Smear Procedures: Hematology Consult
[2025-01-12 16:02] LABS: Hematocrit 39.0 % (37.0-46.0); Hemoglobin 12.7 g/dL (12.4-15.3); Mean Corpuscular HGB Conc 32.6 g/dL (32-36); Mean Corpuscular Hemoglobin 29.9 pg (27.0-31.0); Mean Corpuscular Volume 91.8 fL (78.0-102.0); Platelet Count Result 155 K/mm3 (150-420); Red Blood Count 4.25 M/mm3 (4.70-6.10); White Blood Count 5.0 K/mm3 (4.8-10.8)
[2025-01-12 16:07] LABS: Add Urine Microscopic? YES; Appearance Urine Clear (Clear); Glucose Urine UA Negative (Negative); Leukocyte Esterase Ur Negative (Negative); Nitrate Urine Positive (Negative); Specific Grav Ur 1.020 (1.010-1.020)
[2025-01-12 16:24] LABS: Alanine Aminotransferase 19 U/L (6-50); Albumin Level 4.4 g/dL (3.5-5.1); Alkaline Phosphatase 63 U/L (38-126); Anion Gap 7 mmol/L (4-12); Aspartate Amino Transferase 30 U/L (17-59); Bilirubin,Total 0.8 mg/dL (0.2-1.3); Blood Urea Nitrogen 24 mg/dL (9-20); CRP < 0.5 mg/dL (<1.0); Calcium 9.5 mg/dL (8.4-10.2); Carbon Dioxide 34 mmol/L (22-30); Chloride 105 mmol/L (98-107); Cholesterol 138 mg/dL (0-200); Estimated Glomerular Filt Rate 43; Glucose 84 mg/dL (65-110); HDL Direct 62 mg/dL; Osmolality Calculated 305 mOsm/kg (285-295); Potassium 3.5 mmol/L (3.4-5.0); Sodium 146 mmol/L (137-145); Total Protein 6.4 g/dL (6.3-8.2); Triglycerides 107 mg/dL (<150)
[2025-01-12 16:51] LABS: Prostate Specific Antigen 1.4 ng/mL (< OR = 4.0); Thyroid Stimulating Hormone 3.110 uIU/mL (0.465-4.680)
--- OUTSIDE RECORDS SUMMARY | 2025-01-12 19:03 | XMS_ITS | Clinical Summary ---
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 Not on file Not on file Not on file Last Filed Vital Signs Vital Sign Reading Time Taken Comments Blood Pressure 136/79 01/18/2023 10:36 AM CYTOGENETICS LABORATORY MANAGER Pulse 71 01/18/2023 10:36 AM CYTOGENETICS LABORATORY MANAGER Temperature - - Respiratory Rate 17 01/18/2023 10:36 AM CYTOGENETICS LABORATORY MANAGER Oxygen Saturation 96% 01/18/2023 10:36 AM CYTOGENETICS LABORATORY MANAGER Inhaled Oxygen Concentration - - Weight 86.4 kg (190 lb 6.4 oz) 01/18/2023 10:36 AM CYTOGENETICS LABORATORY MANAGER Height 182.9 cm (6') 01/18/2023 10:36 AM CYTOGENETICS LABORATORY MANAGER Body Mass Index 25.82 01/18/2023 10:36 AM CYTOGENETICS LABORATORY MANAGER Plan of Treatment Health Maintenance Due Date Last Done Comments DTaP, Tdap and Td Vaccines ( 1 - Tdap) 1961 Pneumococcal Vaccine: 50+ Years (1 of 1 - PCV) 1992 Annual Medicare Wellness Visit 07/10/2007 Zoster Vaccines (2 of 3) 02/28/2012 01/03/2012 RSV Immunization or 60+ Years (1 - 1-dose 75+ series) 2017 COVID-19 Vaccine (3 - 2024-2 6 season) 2024 08/14/2020, 07/24/2020 Influenza Adult (#1) 2024 Hepatitis A Vaccines Aged Out No long er eligible based on patient's age to complete this topic Meningococcal B Vaccine Aged Out No l onger eligible based on patient's age to complete this topic Meningococcal Vaccine Aged Out No wu beto eligible based on patient's age to complete this topic RSV Immunizations Under 20 Months Aged Out No longer eligible b ased on patient's age to complete this topic Insurance MEDICARE [employer] MEDICARE [facility] Care Teams Plate Grainer Apprentice Relationship Specialty Start Date End Date Vincent Calderon MD [address] [place] [id number] PCP - General INTERNAL MEDICINE 03/04/19 Krupa Lofton MD [address] [place] [address] Consulting Physician CARDIOVASCULAR DISEASE 05/31/23
--- OUTSIDE RECORDS SUMMARY | 2025-01-12 19:04 | XMS_ITS | Clinical Summary ---
Author Organization [facility] Address [address] [facility] [place] [address] Care Team Providers Care Business Records Manager Name Role Phone Unavailable Primary Care Provider Unavailabl e Source Comments [facility],non-owned Affiliates and Associated Physician Practices is amultiple site organization consisting of ambulatory clinics and hospital sitesin [place], [place], [place] and [place]. This disclosure is being madepursuant to the Care Everywhere program and may not contain all information available regarding this patient. Last updated 17.[facility] Allergies Active Allergy Reactions Criticality Noted Date [...] Comments Blood Pressure 123/78 03/05/2017 11:15 AM WILDLIFE OFFICER Pulse 90 03/05/2017 11:15 AM WILDLIFE OFFICER Temperature 37.3 C (99.1 F) 03/05/2017 11:15 AM WILDLIFE OFFICER Respiratory Rate 18 03/05/2017 11:15 AM WILDLIFE OFFICER Oxygen Saturation 94% 03/05/2017 11:15 AM WILDLIFE OFFICER Inhaled Oxygen Concentration - - Weight 81.2 kg (179 lb) 03/07/2018 8:16 AM WILDLIFE OFFICER Height 182.9 cm (6') 03/07/2018 8:16 AM WILDLIFE OFFICER Body Mass Index 24.28 03/07/2018 8:16 AM WILDLIFE OFFICER Plan of Treatment Health Maintenance Due Date Last Done Comments MEDICARE AWV 12 MONTHS 1940 DTAP/TDAP/TD VACCINES (1 - Tdap) 1961 PNEUMOCOCCAL VACCINE 50+ (1 of 1 - PCV) 1992 ZOSTER VACCINE (1 of 2) 1992 Respiratory Syncytial Virus (RSV) Vaccine Pt: or over 60 yrs (1 - 1-dose 75+ series) 2017 DEPRESSION SCREENING 02/06/2024 COVID-19 VACCINE ( - 2024-2 6 season) 2024 INFLUENZA VACCINE (#1) 2024 HEPATITIS B VACCINE Aged Out No [...] this topic Medical Devices Implanted Type Area Gold Charmer Device Identifier Shelf Expiration Date Model / Serial / Lot Cmnt Bone Plc R 40gm Grn Implanted:Qty: 1 on 03/02/2017 by Urbano Arambula MD at [facility] Knee [employer] 07/05/2021 [id number] / / [id number] Sue Ii Resurfacing Patellar Component Implanted:Qty: 1 on 03/02/2017 by Urbano Arambula MD at [facility] Left: Knee [employer] 12/31/2026 [id number] / / [id number] A/P 52mm. M/L 74mm Articular Insert Implanted:Qty: 1 on 03/02/2017 by Urbano Arambula MD at [facility] Right: Knee [employer] 07/18/2026 [id number] / / [id number] A/P 52mm, M/L 74mm Articular Insert Implanted:Qty: 1 on 03/02/2017 by Urbano Arambula MD at [facility] Left: Knee [employer] 07/11/2026 [id number] / / [id number] Cmnt Bone Plc R 40gm Grn Implanted:Qty: 3 on 03/02/2017 by Urbano Arambula MD at [facility] Knee [employer] 08/04/2021 [id number] / / [id number] Oval Sue Ii Resurfacing Patellar Component Implanted:Qty: 1 on 03/02/2017 by Urbano Arambula MD at [facility] Right: Knee [employer] 07/10/2026 [id number] / / [id number] Femoral Component Implanted:Qty: 1 on 03/02/2017 by Urbano Arambula MD at [facility] Right: Knee [employer] 12/09/2026 [id number] / / [id number] Nonporous Tibial Baseplate Implanted:Qty: 1 on 03/02/2017 by Urbano Arambula MD at [facility] Right: Knee [employer] 09/19/2026 [id number] / / [id number] Nonporous Tibial Base Plate Implanted:Qty: 1 on 03/02/2017 by Urbano Arambula MD at [facility] Left: Knee [employer] 04/23/2026 [id number] / / [id number] Cmpnt Fem Kn Lt 6 Bicruciate Stab Implanted:Qty: 1 on 03/02/2017 by Urbano Arambula MD at [facility] Left: Knee [employer] 12/23/2026 [id number] / / [id number] Explanted Type Area Gold Charmer Device Identifier Shelf Expiration Date Model / Serial / Lot Vis Cut Guidejii Kit Rt Explanted:Qty: 1 on 03/02/[address] [facility] Right: Knee [employer] 05/15/2017 [id number] / / [id number] Vis Cut Guide Jii Kit Lt Explanted:Qty: 1 on 03/02/[address] [facility] Left: Knee [employer] 05/15/2017 [id number] / / [id number] Insurance MEDICARE [facility] [employer] [facility] MEDICARE MEDICARE SELF PAY NO INSURANCE Member Subscriber Plan / Payer (Ef fective for All Dates) Name:Rolly Gray Member ID:Not on file Relation to Subscriber:Not on file Name:ROLLY GRAY Subscriber ID:Not on file (Home) Address: [address] [place] [address] Payer ID:Not on file Group ID:Not on file Type:Self Pay Address: [place], [place] Advance Directives Documents on File Type Date Recorded Patient Kennel Assistant Expl anation Adv Directive/Living Will/POA 03/06/2017 6:36 PM * Full Code (Latest Code Status on File) Date Activated Date Inactivated Comments 03/02/2017 6:15 PM 03/05/2017 4:41 PM
--- OUTSIDE RECORDS SUMMARY | 2025-01-12 19:04 | XMS_ITS | Clinical Summary ---
Author Organization [facility] Address [address] [place] [address] Care Team Providers Care [employer] Name Role Phone Vincent Calderon MD Primary Care Provider [phone] Andrew Zazueta MD Unavailable Dell BECKER MD, David Gtz Unavailable [phone] Allergies Active Allergy Reactions Criticality Noted Date Comments Azithromycin Other (See comments) Low 06/05/2018 Altered taste Meloxicam Swelling Medium 02/12/2017 Fluid retention and high blood pressure Morphine Nausea only Low 12/08/2016 Nausea and vomiting for 5 hours after surgery Medications levothyroxine (SYNTHROID) 50 mcg tablet Take 1 tablet (50 mcg total) by mouth first front ventilator before breakfast 0 9 Active cholecalciferol (VITAMIN D-3) 25 mcg (1,000 unit) tablet Take 1 tablet (1,000 Units total) by mouth daily Active doxycycline hyclate 100 mg capsule Take 1 tablet/capsule (100 mg total) by mouth daily 0 Active cclfummi-wxki-f hv2-V-dhlw-bosw 750 mg-644 mg- 30 mg-1 mg tablet Take 1 tablet by mouth daily Dose is 1500mg/1100mg Active multivit-min/FA /lycopen/lutein (CENTRUM SILVER MEN ORAL) Take 1 tablet by mouth daily Active pramipexole (MIRAPEX) 0.5 mg tablet TAKE 1 TABLET EVERY MORNINGAND 2 TABLETS AT BEDTIME 4 Active atorvastatin (LIPITOR) 80 mg tablet Take 1 tablet (80 mg total) by mouth daily 90 tablet 3 5 06/03/19 26 Active furosemide (LASIX) 20 mg tablet Take 1 tablet (20 mg total) by mouth daily 90 tablet 3 5 Active irbesartan-hydr ochlorothiazide (AVALIDE) 150-12.5 mg per tablet Take 1 tablet by mouth daily 90 tablet 3 5 Active spironolactone (ALDACTONE) 25 mg tablet Take 1 tablet (25 mg total) by mouth daily 90 tablet 3 5 Active metoprolol XL (TOPROL-XL) 50 mg extended release tablet Take 1 tablet (50 mg total) by mouth daily 90 tablet 3 5 Active Active Problems Problem Noted Date Diagnosed [...] (02/19/2018): Added automatically from request for surgery [id number] Family hx of colon cancer 02/19/2018 Overview (02/19/2018): Added automatically from request for surgery [id number] Closed fracture of right hip requiring operative repair Resolved Problems Problem Noted Date Diagnosed Date Resolved Date Primary osteoarthritis of left hip 01/26/2021 04/05/2021 Overview (01/26/2021): Added automatically from request for surgery [id number] Surgical History Surgery Date Site/Laterality Comments ROTATOR CUFF REPAIR Right Rotator cuff repair OTHER SURGICAL HISTORY Right knee arthroscopic COLONOSCOPY 02/18/2013 REPLACEMENT TOTAL KNEE BILATERAL 02/05/2017 - 03/07/2017 HIP FRACTURE SURGERY Right COLONOSCOPY 03/08/2018 - 04/04/2018 COLONOSCOPY 09/24/2023 CATARACT EXTRACTION Bilateral HIP ARTHROPLASTY Bilateral REPLACEMENT TOTAL KNEE Bilateral LUMBAR DISC SURGERY Medical History Medical History Date Comments Hypercholesterolemia High choles terol; Comments: [facility] 04/14/2014 - Hypertension Hypertension Disorder of thyroid Thyroid dise ase Arthritis Arthritis; Comme nts: [facility] 04/14/2014 - Colon polyp Sleep apnea PONV [...] on file Legal Sex Male 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[employer] Gender Identity Not on file Sexual Orientation Not on file Last Filed Vital Signs Vital Sign Reading Time Taken Comments Blood Pressure 150/79 06/02/2024 10:18 AM CDT Pulse 59 06/02/2024 10:18 AM CDT Temperature 36.4 C (97.6 F) 01/06/2024 7:18 AM MOBILE DESIGNER Respiratory Rate 18 06/02/2024 10:18 AM CDT Oxygen Saturation 96% 01/06/2024 11:00 AM MOBILE DESIGNER Inhaled Oxygen Concentration - - Weight 83 [...] 02/28/2012 01/03/2012 Depression Screening 03/09/2022 03/09/2021, 06/06/19 Fall Risk Assessment 09/23/2024 09/24/2023 Covid-19 Vaccine (3 - season) 10/06/202411/2020, 07/24/2020 Influenza Vaccine (#1) 2024 Medical Devices Implanted Type Area Armed Custom Protection Officer Device Identifier Shelf Expiration Date Model / Serial / Lot Acetabular Shell Sector Implanted:Qty: 1 on 06/06/2018 by Andrew Zazueta MD at [facility] Right: Hip [employer] [id number] 03/07/2028 1217-10595 / / [id number] [employer] 1217-35500 Avon 6.5mm 35mm Acetabular Cancellous Screw Bone Sterile - [id number] Implanted:Qty: 1 on 06/06/2018 by Andrew Zazueta MD at [facility] Right: Hip [employer] 02/05/2028 1217-35-500 / / [id number] [employer] [id number] Avon 58mm 36mm Hip Neutral Liner Acetabular Altrx Sterile Latex Free - [id number] Implanted:Qty: 1 on 06/06/2018 by Andrew Zazueta MD at [facility] Right: Hip [employer] 03/07/2023 [id number] / / [id number] [employer] [id number] Actis Collar Hip 8 Standard Offset Stem Femoral - [id number] Implanted:Qty: 1 on 06/06/2018 by Andrew Zazueta MD at [facility] Right: Hip [employer] 10/06/2027 [id number] / / [id number] [employer] 1365-36-330 Articul/Matt 36mm Cementless Hip +8.5mm 12/14 Taper Head Femoral Latex Free - [id number] Implanted:Qty: 1 on 06/06/2018 by Andrew Zazueta MD at [facility] Right: Hip [employer] 04/05/2023 1365-36-330 / / [id number] [employer] 1365-36-330 Articul/Matt 36mm Cementless Hip +8.5mm 12/14 Taper Head Femoral Latex Free - [id number] Implanted:Qty: 1 on 03/21/2021 by Andrew Zazueta MD at [facility] Left: Hip [employer] 12/05/2025 1365-36-330 / / [id number] [employer] [id number] Avon 58mm Sector Hip Shell Acetabular Gription Sterile Latex Free - [id number] Implanted:Qty: 1 on 03/21/2021 by Andrew Zazueta MD at [facility] Left: Hip [employer] 11/04/2030 [id number] / / [id number] [employer] [id number] Avon 58mm 36mm Hip Neutral Liner Acetabular Altrx Sterile Latex Free - [id number] Implanted:Qty: 1 on 03/21/2021 by Andrew Zazueta MD at [facility] Left: Hip [employer] 01/04/2026 [id number] / / [id number] [employer] 1217-35-500 Avon 6.5mm 35mm Acetabular Cancellous Screw Bone Sterile - [id number] Implanted:Qty: 1 on 03/21/2021 by Andrew Zazueta MD at [facility] Left: Hip [employer] 12/05/2030 1217-35-500 / / [id number] [employer] [id number] Actis Collar Hip 9 High Offset Stem Femoral - [id number] Implanted:Qty: 1 on 03/21/2021 by Andrew Zazueta MD at [facility] Left: Hip [employer] 01/04/2031 [id number] / / [id number] [place] [address] MEDICARE [facility] BENEFIT PLAN MEDICARE Member Subscriber Plan / Payer (Ef fective 2007-Present) Name:Rolly Gray Member ID:[id number] Relation to Subscriber:Self Name:Rolly Gray Subscriber ID:[id number] Payer ID:[id number] Group ID:Not on file Type:MEDICARE TRADITIONAL Address: [place] [address] MEDICARE Member Subscriber Plan / Payer (Ef fective 2007-Present) Name:Rolly Gray Member ID:[id number] Relation to Subscriber:Self Name:Rolly Gray Subscriber ID:[id number] Payer ID:[id number] Group ID:Not on file Type:MEDICARE TRADITIONAL Address: [address] HEALTH BENEFIT PLAN MEDICARE [facility] Address: [address] [address] [facility] BENEFIT PLAN Advance Directives For more information, please contact: [phone] * Full Code (Latest Code Status on [...] 2:53 PM 06/07/2018 6:50 PM Care Teams [employer] Relationship Specialty Start Date End Date Vinecnt Calderon MD PCP - General 05/09/16 Andrew Zazueta MD Surgeon Orthopedic Surgery 03/22/21 David Sharpe III, MD [address] [place] [address] Referring Physician Cardiology 02/13/22
== END 2025-01-12 15:44 | disposition home or self-care (01) ==
LOC: CHSLAB 15:45
PROVIDERS: PCP Internal Medicine; Visit Provider Internal Medicine
DX: I10 Essential (primary) hypertension (principal); D64.9 Anemia, unspecified; D69.6 Thrombocytopenia, unspecified; Z12.5 Encounter for screening for malignant neoplasm of prostate
CPT/HCPCS: 36415; 80053; 80061; 81001; 84153; 84443; 85027; 86140; G0103